=== PATIENT | female | born 1990 | race American Indian/Alaskan Native ===

== ENCOUNTER 2018-07-07 17:25 | Emergency (ER) | payer OTHER ==
[2018-07-07] MEDS ORDERED: TYLENOL PO ONE (17:54)
--- NOTE | 2018-07-07 17:54 | Emergency Department Report ---
Chief Complaint: Pain General Stated Complaint: LOWER BACK PAIN/BODY ACHE Time Seen by Provider: 07/07/18 17:51 - HPI History of Present Illness: This is a 28 y.o. female that presents to the ER with right flank pain and chills since yesterday. Denies n/v/d Reports decreased appetite. - Exam Vital Signs: Vital Signs 07/07/18 17:51 Temperature 101.1 F H Pulse Rate 97 H Respiratory 18 Rate Blood Pressure 156/104 O2 Sat by Pulse 100 Oximetry MSE screening note: Focused history and physical exam performed. Due to findings the following was ordered: Labs ACC for further evaluation. ED Disposition for MSE Condition: Stable
[2018-07-07] MEDS ORDERED: TYLENOL ONE (17:57)
[2018-07-07 18:15] LABS: Basophils % (Auto) 0.3 % (0.0-1.8); Eosinophils # (Auto) 0.1 K/mm3 (0.0-0.4); Eosinophils % (Auto) 1.2 % (0.0-4.3); Hematocrit 42.6 % (30.3-42.9); Hemoglobin 13.7 gm/dl (10.1-14.3); Lymphocytes # (Auto) 1.5 K/mm3 (1.2-5.4); Lymphocytes % (Auto) 15.5 % (13.4-35.0); Mean Corpuscular HGB Conc 32 % (30-34); Mean Corpuscular Volume 82 fl (79-97); Monocytes # (Auto) 1.2 K/mm3 (0.0-0.8); Monocytes % (Auto) 12.4 % (0.0-7.3); Platelet Count 144 K/mm3 (140-440); Red Cell Distribution Width 16.4 % (13.2-15.2)
[2018-07-07 18:37] LABS: Alanine Aminotransferase 8 units/L (7-56); Albumin 4.1 g/dL (3.9-5); BUN/Creatinine Ratio 7; Blood Urea Nitrogen 6 mg/dL (7-17); Calcium 8.8 mg/dL (8.4-10.2); Hemolysis Index 18
[2018-07-07 19:04] LABS: Bilirubin,Urine NEG (Negative); Blood,Urine SM (Negative); Color,Urine Yellow (Yellow); Mucus,Urine 2+ /HPF
--- NOTE | 2018-07-07 20:25 | Emergency Department Report ---
ED General Adult HPI - General Chief complaint: Pain General Stated complaint: LOWER BACK PAIN/BODY ACHE Time Seen by Provider: 07/07/18 17:51 Source: patient Mode of arrival: Ambulatory Limitations: No Limitations - History of Present Illness Initial comments: This is a 28 y.o. female that presents to the ER with right flank pain and chills since yesterday. Symptoms include dysuria, frequency, and urgency, no hematuria no vaginal discharge , LMP 3 weeks ago, pt denies n/v/d, Reports decreased appetite. no hx of renal stones Onset/Timin -: days(s) Location: abdomen Radiation: flank Severity scale (0 -10): 3 Quality: burning, aching Consistency: intermittent Improves with: none Worsens with: other (voiding ) Treatments Prior to Arrival: none - Related Data Previous Rx's Medication Instructions Recorded Last Taken Type Acetaminophen/Codeine [Tylenol 1 tab PO Q6H PRN #12 tab 03/01/18 Unknown Rx /Codeine # 3 tab] Amoxicillin/K Clav Tab [Augmentin 1 tab PO Q12HR #20 tab 03/01/18 Unknown Rx 875 mg] Chlorhexidine Mouthwash [Peridex] 15 ml MM BID #1 bottle 03/01/18 Unknown Rx Ibuprofen [Motrin] 600 mg PO Q8H PRN #20 tablet 03/01/18 Unknown Rx Clindamycin [Clindamycin CAP] 300 mg PO Q8H 10 Days #30 cap 03/07/18 Unknown Rx Omeprazole 40 mg PO DAILY #30 capsule. 07/07/18 Unknown Rx Sucralfate [Carafate] 1 gm PO ACHS 7 Days #28 tablet 07/07/18 Unknown Rx levoFLOXacin [Levaquin TAB] 500 mg PO QDAY #10 tablet 07/07/18 Unknown Rx traMADol [Ultram] 50 mg PO Q6HR PRN #12 tablet 07/07/18 Unknown Rx Allergies Allergy/AdvReac Type Severity Reaction Status Date / Time ceftriaxone [From Rocephin] Allergy Unknown Verified 07/07/18 17:51 ED Review of Systems ROS: Stated complaint: LOWER BACK PAIN/BODY ACHE Other details as noted in HPI Constitutional: denies: chills, fever Eyes: denies: eye pain, eye discharge, vision change ENT: denies: ear pain, throat pain Respiratory: denies: cough, shortness of breath, wheezing Cardiovascular: denies: chest pain, palpitations Endocrine: no symptoms reported Gastrointestinal: abdominal pain (right flank pain ) Genitourinary: urgency, dysuria, frequency. denies: hematuria, discharge, abnormal menses, dyspareunia Musculoskeletal: back pain Skin: denies: rash, lesions Neurological: denies: headache, weakness, paresthesias Psychiatric: denies: anxiety, depression Hematological/Lymphatic: denies: easy bleeding, easy bruising ED Past Medical Hx - Past Medical History Previous Medical History?: No Additional medical history: vaginal ablation - Surgical History Past Surgical History?: Yes Additional Surgical History: tubal ligation, cervical ablation - Social History Smoking Status: Current Every Day Smoker Substance Use Type: None - Medications Home Medications: Home Medications Medication Instructions Recorded Confirmed Last Taken Type Acetaminophen/Codeine [Tylenol 1 tab PO Q6H PRN #12 tab 03/01/18 Unknown Rx /Codeine # 3 tab] Amoxicillin/K Clav Tab [Augmentin 1 tab PO Q12HR #20 tab 03/01/18 Unknown Rx 875 mg] Chlorhexidine Mouthwash [Peridex] 15 ml MM BID #1 bottle 03/01/18 Unknown Rx Ibuprofen [Motrin] 600 mg PO Q8H PRN #20 tablet 03/01/18 Unknown Rx Clindamycin [Clindamycin CAP] 300 mg PO Q8H 10 Days #30 cap 03/07/18 Unknown Rx Omeprazole 40 mg PO DAILY #30 capsule.dr 07/07/18 Unknown Rx Sucralfate [Carafate] 1 gm PO ACHS 7 Days #28 tablet 07/07/18 Unknown Rx levoFLOXacin [Levaquin TAB] 500 mg PO QDAY #10 tablet 07/07/18 Unknown Rx traMADol [Ultram] 50 mg PO Q6HR PRN #12 tablet 07/07/18 Unknown Rx ED Physical Exam - General Limitations: No Limitations General appearance: alert, in no apparent distress - Head Head exam: Present: atraumatic, normocephalic - Eye Eye exam: Present: normal appearance, PERRL, EOMI Pupils: Present: normal accommodation - ENT ENT exam: Present: mucous membranes moist - Neck Neck exam: Present: normal inspection, full ROM - Respiratory Respiratory exam: Present: normal lung sounds bilaterally. Absent: respiratory distress - Cardiovascular Cardiovascular Exam: Present: regular rate, normal rhythm, normal heart sounds. Absent: systolic murmur, diastolic murmur, rubs, gallop - GI/Abdominal GI/Abdominal exam: Present: soft, normal bowel sounds. Absent: distended, tenderness, guarding, rebound, rigid, bruit, hernia - Rectal Rectal exam: Present: deferred - Extremities Exam Extremities exam: Present: normal inspection, full ROM, normal capillary refill. Absent: tenderness - Back Exam Back exam: Present: normal inspection, full ROM, CVA tenderness (R), rash noted. Absent: tenderness, CVA tenderness (L), muscle spasm, paraspinal tenderness, vertebral tenderness - Neurological Exam Neurological exam: Present: alert, oriented X3, CN II-XII intact, normal gait - Psychiatric Psychiatric exam: Present: normal affect, normal mood - Skin Skin exam: Present: warm, dry, intact, normal color. Absent: rash ED Course Vital Signs 07/07/18 07/07/18 07/07/18 17:51 20:53 21:23 Temperature 101.1 F H Pulse Rate 97 H Respiratory 18 16 16 Rate Blood Pressure 156/104 O2 Sat by Pulse 100 98 Oximetry ED Medical Decision Making - Lab Data Result diagrams: 07/07/18 17:59 07/07/18 17:59 Labs 07/07/18 07/07/18 07/07/18 17:59 17:59 17:59 WBC 9.9 RBC 5.20 H Hgb 13.7 Hct 42.6 MCV 82 MCH 26 L MCHC 32 RDW 16.4 H Plt Count 144 Lymph % (Auto) 15.5 Ross % (Auto) 12.4 H Eos % (Auto) 1.2 Baso % (Auto) 0.3 Lymph # 1.5 Ross # 1.2 H Eos # 0.1 Baso # 0.0 Seg Neutrophils % 70.6 H Seg Neutrophils # 7.0 Sodium 134 L Potassium 3.4 L Chloride 91.9 L Carbon Dioxide 24 Anion Gap 22 BUN 6 L Creatinine 0.9 Estimated GFR > 60 BUN/Creatinine Ratio 7 Glucose 91 Calcium 8.8 Total Bilirubin 0.60 AST 12 ALT 8 Alkaline Phosphatase 94 Total Protein 7.3 Albumin 4.1 Albumin/Globulin Ratio 1.3 Lipase 15 HCG, Qual Negative Urine Color Urine Turbidity Urine pH Ur Specific [place] Urine Protein Urine Glucose (UA) Urine Ketones Urine Blood Urine Nitrite Urine Bilirubin Urine Urobilinogen Ur Leukocyte Esterase Urine WBC (Auto) Urine RBC (Auto) U Epithel Cells (Auto) Urine Mucus 07/07/18 18:03 WBC RBC Hgb Hct MCV MCH MCHC RDW Plt Count Lymph % (Auto) Ross % (Auto) Eos % (Auto) Baso % (Auto) Lymph # Ross # Eos # Baso # Seg Neutrophils % Seg Neutrophils # Sodium Potassium Chloride Carbon Dioxide Anion Gap BUN Creatinine Estimated GFR BUN/Creatinine Ratio Glucose Calcium Total Bilirubin AST ALT Alkaline Phosphatase Total Protein Albumin Albumin/Globulin Ratio Lipase HCG, Qual Urine Color Yellow Urine Turbidity Clear Urine pH 7.0 Ur Specific [place] 1.012 Urine Protein 30 mg/dl Urine Glucose (UA) Neg Urine Ketones Neg Urine Blood Sm Urine Nitrite Neg Urine Bilirubin Neg Urine Urobilinogen 4.0 Ur Leukocyte Esterase Mod Urine WBC (Auto) 58.0 H Urine RBC (Auto) 17.0 U Epithel Cells (Auto) 4.0 Urine Mucus 2+ - Radiology Data Radiology results: report reviewed, [place] [address] Cat Scan Report Signed Patient: URDY GOODE MR#: [id number] 7 : 1990 Acct:[id number] Age/Sex: 28 / F ADM Date: 07/07/18 Loc: ED Attending Dr: Ordering Physician: RIC RIBEIRO NP Date of Service: 07/07/18 Procedure(s): CT abdomen pelvis wo con Accession Number(s): [id number] cc: RIC RIBEIRO NP PROCEDURE: CT ABDOMEN PELVIS WO CON TECHNIQUE: Axial helical imaging through the abdomen and pelvis with sagittal and coronal reformatted images obtained. HISTORY: abd pain COMPARISONS: None FINDINGS: The lung bases are without infiltrate, pneumothorax or pleural fluid collection. The liver, spleen, pancreas and adrenal glands are unremarkable. The gallbladder is mildly distended and contains a calcified gallstone. There is mild to moderate stranding of the right perinephric fat. There is no definite evidence of hydronephrosis nor hydroureter and no definite evidence of an obstructing stone. The bowel is normal caliber. The appendix is normal caliber. There appears to be a small amount of free fluid in the deep pelvis. There is no evidence of pneumoperitoneum. The abdominal aorta is normal caliber. There is no definite evidence of adenopathy on this study without contrast. The urinary bladder is mildly distended and unremarkable. The uterus and adnexa are unremarkable. The bony structures are unremarkable. IMPRESSION: 1. Mild to moderate stranding of the right perinephric fat without definite evidence of hydronephrosis and without definite evidence of an obstructing stone. This may represent sequela of a recently passed stone. Differential diagnosis in the proper clinical setting would also include pyelonephritis. If further imaging is required, CT with IV contrast may be helpful for further evaluation. 2. Gallstone within the gallbladder. 3. Small amount of free fluid in the deep pelvis. This document is electronically signed by Felicity Ferrari MD., July 07 2018 09:36:19 PM ET Transcribed By: ED Dictated By: FELICITY FERRARI MD Electronically Authenticated By: FELICITY FERRARI MD Signed Date/Time: 07/07/182137 DD/ 13 TD/TT: 07/07/182113 - Medical Decision Making CT: ? likely passed renal stone, Gallstone, plan: Levaquin,pt is pcn and cephalosporin allergic, Rx for omeprazole, carafate, and ultram, follow up with GI and urology in 2-3 days , given referral to [facility] for pcp affiliation, pt verbalized agreement and understanding of discharge plan . Critical care attestation.: If time is entered above; I have spent that time in minutes in the direct care of this critically ill patient, excluding procedure time. ED Disposition Clinical Impression: Gallstones, Pyelonephritis UTI (urinary tract infection) Qualifiers: Urinary tract infection type: acute cystitis Hematuria presence: without hematu juan Qualified Code(s): N30.00 - Acute cystitis without hematuria Disposition: - TO HOME OR SELFCARE Is pt being admited?: No Does the pt Need Aspirin: No Condition: Stable Instructions: Cholelithiasis (ED), Urinary Tract Infection in Women (ED) Prescriptions: Sucralfate [Carafate] 1 gm PO ACHS 7 Days #28 tablet levoFLOXacin [Levaquin TAB] 500 mg PO QDAY #10 tablet Omeprazole 40 mg PO DAILY #30 capsule. traMADol [Ultram] 50 mg PO Q6HR PRN #12 tablet PRN Reason: Pain Referrals: [facility] [Provider Group] - 3-5 Days NEREYDA PRIEST MD [Staff Physician] - 3-5 Days [facility] [Outside] - 2-3 Days Forms: Work/School Release Form(ED) Time of Disposition: 22:46
[2018-07-07] MEDS ORDERED: NACL 0.9% 1000 ML 1,000 ML IV ONE (20:28)
[2018-07-07] MEDS ORDERED: TORADOL IV ONE (20:28)
[2018-07-07] MEDS ORDERED: ZOFRAN IV ONE (20:28)
--- NOTE | 2018-07-07 21:38 | Cat Scan Report ---
PROCEDURE: CT ABDOMEN PELVIS WO CON TECHNIQUE: Axial helical imaging through the abdomen and pelvis with sagittal and coronal reformatte d images obtained. HISTORY: abd pain COMPARISONS: None FINDINGS: The lung bases are without infiltrate, pneumothorax or pleural fluid collection. The liver, spleen, pancreas and adrenal glands are unremarkable. The gallbladder is mildly distended and contains a calcified gallstone. There is mild to moderate stranding of the right perinephric fat. There is no definite evidence of hy dronephrosis nor hydroureter and no definite evidence of an obstructing stone. The bowel is normal caliber. The appendix is normal caliber. There appears to be a small amount of free fluid in the deep pelvis. There is no evidence of pneumope ritoneum. The abdominal aorta is normal caliber. There is no definite evidence of adenopathy on this study without contrast. The urinary bladder is mildly distended and unremarkable. The uterus and adnexa are unremarkable. The bony structures are unremarkable. IMPRESSION: 1. Mild to moderate stranding of the right perinephric fat without definite evidence of hydronephrosi s and without definite evidence of an obstructing stone. This may represent sequela of a recently pas sed stone. Differential diagnosis in the proper clinical setting would also include pyelonephritis. If further imaging is required, CT with IV contrast may be helpful for further evaluation. 2. Gallstone within the gallbladder. 3. Small amount of free fluid in the deep pelvis. This document is electronically signed by Felicity Ferrari MD., July 07 2018 09:36:19 PM ET
[2018-07-07] MEDS ORDERED: LEVAQUIN 500MG/100ML 500 MG/100 ML BAG IV ONE (22:04)
[2018-07-07] MEDS ORDERED: NORCO 5/325 PO ONE (22:50)
[2018-07-07 23:21] VITALS: BP 136/83
== END 2018-07-07 23:30 | disposition home or self-care (01) ==
LOC: ED 17:25
DX: N30.00 Acute cystitis without hematuria (principal); N12 Tubulo-interstitial nephritis, not specified as acute or chronic; K80.50 Calculus of bile duct without cholangitis or cholecystitis without obstruction; F17.200 Nicotine dependence, unspecified, uncomplicated; Z98.51 Tubal ligation status; Z79.899 Other long term (current) drug therapy; Z88.1 Allergy status to other antibiotic agents
CPT/HCPCS: 36415; 74176; 80053; 81001; 83690; 84703; 85025; 96365; 96375; 99284; J1885; J1956; J2405; J7030

== ENCOUNTER 2019-01-31 15:50 | Emergency (ER) | payer SELFPAY ==
--- NOTE | 2019-01-31 19:27 | Emergency Department Report ---
ED Neck Pain/Injury HPI - General Chief Complaint: Neck Pain/Injury Stated Complaint: NECK/BACK PAIN Source: patient Mode of arrival: Ambulatory Limitations: No Limitations - History of Present Illness Initial Comments: There is a pleasant 29-year-old female who presents them are still part of the chief complaint of bilateral neck pain over the past 3 days. She states she has been sleeping on her mom's couch for the past year has had on and off pain in her neck. She states over the past 3 days she's had gradual pain that started the base of her neck and radiates up to the sides of her head the skull base. She states when this pain started was gradual in onset however seems to be getting worse. Pain is aggravated by movement. Pain is 8 out of 10 in severity described as dull and achy with no alleviating factors. She denies any known past medical history, current medication use but has allergies to Rocephin. Onset/Timin -: days(s) Severity: similar to prior neck anai Severity scale (0 -10): 8 - Related Data Previous Rx's Medication Instructions Recorded Last Taken Type Clindamycin [Clindamycin CAP] 300 mg PO Q8H 10 Days #30 cap 03/07/18 Unknown Rx Omeprazole 40 mg PO DAILY #30 capsule. 07/07/18 Unknown Rx Sucralfate [Carafate] 1 gm PO ACHS 7 Days #28 tablet 07/07/18 Unknown Rx levoFLOXacin [Levaquin TAB] 500 mg PO QDAY #10 tablet 07/07/18 Unknown Rx Naproxen 500 mg PO BID 7 Days #14 tablet 01/31/19 Unknown Rx methOCARBAMOL [Robaxin TAB] 500 mg PO Q6H #20 tablet 01/31/19 Unknown Rx Allergies Allergy/AdvReac Type Severity Reaction Status Date / Time ceftriaxone [From Rocephin] Allergy Unknown Verified 07/07/18 17:51 ED Review of Systems ROS: Stated complaint: NECK/BACK PAIN Other details as noted in HPI Comment: All other systems reviewed and negative Constitutional: denies: chills, fever Eyes: denies: eye pain, eye discharge, vision change ENT: denies: ear pain, throat pain Respiratory: denies: cough, shortness of breath, wheezing Cardiovascular: denies: chest pain, palpitations Endocrine: no symptoms reported Gastrointestinal: denies: abdominal pain, nausea, diarrhea Genitourinary: denies: urgency, dysuria, discharge Musculoskeletal: as per HPI, myalgia. denies: back pain, joint swelling, arthralgia Skin: denies: rash, lesions Neurological: denies: headache, weakness, paresthesias Psychiatric: denies: anxiety, depression Hematological/Lymphatic: denies: easy bleeding, easy bruising ED Past Medical Hx - Past Medical History Previous Medical History?: Yes Hx Hypertension: Yes Additional medical history: vaginal ablation - Surgical History Past Surgical History?: Yes Additional Surgical History: tubal ligation, cervical ablation - Social History Smoking Status: Current Every Day Smoker Substance Use Type: None - Medications Home Medications: Home Medications Medication Instructions Recorded Confirmed Last Taken Type Clindamycin [Clindamycin CAP] 300 mg PO Q8H 10 Days #30 cap 03/07/18 Unknown Rx Omeprazole 40 mg PO DAILY #30 capsule.dr 07/07/18 Unknown Rx Sucralfate [Carafate] 1 gm PO ACHS 7 Days #28 tablet 07/07/18 Unknown Rx levoFLOXacin [Levaquin TAB] 500 mg PO QDAY #10 tablet 07/07/18 Unknown Rx Naproxen 500 mg PO BID 7 Days #14 tablet 01/31/19 Unknown Rx methOCARBAMOL [Robaxin TAB] 500 mg PO Q6H #20 tablet 01/31/19 Unknown Rx ED Physical Exam - General Limitations: No Limitations General appearance: alert, in no apparent distress - Head Head exam: Present: atraumatic, normocephalic - Eye Eye exam: Present: normal appearance - ENT ENT exam: Present: normal exam, mucous membranes moist - Neck Neck exam: Present: normal inspection, tenderness (mild paraspinal tenderness. No midline tenderness of cervical spine. Full active range of motion without pain. No carotid bruits.), full ROM, other (negative Spurling sign). Absent: meningismus - Respiratory Respiratory exam: Present: normal lung sounds bilaterally. Absent: respiratory distress - Cardiovascular Cardiovascular Exam: Present: regular rate, normal rhythm. Absent: systolic murmur, diastolic murmur, rubs, gallop - GI/Abdominal GI/Abdominal exam: Present: soft, normal bowel sounds - Extremities Exam Extremities exam: Present: normal inspection - Back Exam Back exam: Present: normal inspection - Neurological Exam Neurological exam: Present: alert, oriented X3, CN II-XII intact, normal gait, other (normal strength and sensation of the bilateral upper and lower extremities, normal gait, no focal neurologic deficits.) - Psychiatric Psychiatric exam: Present: normal affect, normal mood - Skin Skin exam: Present: warm, dry, intact, normal color. Absent: rash ED Course Vital Signs 01/31/19 01/31/19 16:06 20:06 Temperature 98.3 F 98.3 F Pulse Rate 62 54 L Respiratory 18 Rate Blood Pressure 142/99 Blood Pressure 143/97 [Left] O2 Sat by Pulse 100 Oximetry ED Medical Decision Making - Medical Decision Making This pleasant 29-year-old female presents the emergency department with chief complaint of neck pain for the past 3 days however states it has been ongoing for the past year on and off. She denies any injuries. She has no fever or meningismus on exam and a negative Kernig and Brudzinski sign making meningitis unlikely. Her neurologic exam is unremarkable and her pain is reproducible suspect this is very muscular skeletal. She has no symptoms of a vascular etiology of her pain such as dissection with no bruits and no risk factors for this. Her NIH score is 0 and there are no focal neurologic deficits on her exam. Patient's headache was gradual making subarachnoid hemorrhage unlikely. She had no pain to the temporal areas and no vision changes making temporal arteritis unlikely. I educated the patient to return the first part of any change or worsening symptoms but we'll treat her pain from a skilled skeletal pain with naproxen and Robaxin and recommended to the area. I will give orthopedic follow-up and recommended outpatient follow-up with her primary care doctor. Return to the emergency department with a changing worsening symptoms. All questions were answered. - Differential Diagnosis strain, muscle spasm, fracture Critical care attestation.: If time is entered above; I have spent that time in minutes in the direct care of this critically ill patient, excluding procedure time. ED Disposition Clinical Impression: Strain of neck muscle Qualifiers: Encounter type: initial encounter Qualified Code(s): S16.1XXA - Strain of muscle, fascia and tendon at neck level, initial encounter Disposition: TO HOME OR SELFCARE Is pt being admited?: No Does the pt Need Aspirin: No Condition: Stable Instructions: Muscle Strain (ED) Prescriptions: Naproxen 500 mg PO BID 7 Days #14 tablet methOCARBAMOL [Robaxin TAB] 500 mg PO Q6H #20 tablet Forms: Work/School Release Form(ED) Time of Disposition: 20:31
[2019-01-31 20:08] VITALS: BP 143/97
== END 2019-01-31 20:40 | disposition home or self-care (01) ==
LOC: ED 15:50
DX: S16.1XXA Strain of muscle, fascia and tendon at neck level, initial encounter (principal); I10 Essential (primary) hypertension; F17.200 Nicotine dependence, unspecified, uncomplicated; Z98.51 Tubal ligation status; Z79.899 Other long term (current) drug therapy; X58.XXXA Exposure to other specified factors, initial encounter; Y93.89 Activity, other specified; Y92.89 Other specified places as the place of occurrence of the external cause; Y99.8 Other external cause status

== ENCOUNTER 2019-06-04 00:05 | Emergency (ER) | payer SELFPAY ==
[2019-06-04] MEDS ORDERED: ASPIRIN 325 MG TAB PO ONE (00:36)
[2019-06-04] MEDS ORDERED: cloNIDine 0.1 MG TAB PO ONE (00:39)
[2019-06-04 01:00] LABS: Hemoglobin 13.6 gm/dl (10.1-14.3); Mean Corpuscular HGB Conc 34 % (30-34); Mean Corpuscular Volume 81 fl (79-97); Platelet Count 112 K/mm3 (140-440); Red Blood Count 4.96 M/mm3 (3.65-5.03); Red Cell Distribution Width 15.7 % (13.2-15.2)
[2019-06-04 01:22] LABS: BUN/Creatinine Ratio 11; Blood Urea Nitrogen 8 mg/dL (7-17); Calcium 9.1 mg/dL (8.4-10.2); Hemolysis Index 6
--- NOTE | 2019-06-04 03:27 | XRay Report ---
CHEST 1 VIEW INDICATION / CLINICAL INFORMATION: Chest Pain. COMPARISON: None available. FINDINGS: SUPPORT DEVICES: None. HEART / MEDIASTINUM: No significant abnormality. LUNGS / PLEURA: No significant pulmonary or pleural abnormality. No pneumothorax. ADDITIONAL FINDINGS: No significant additional findings. IMPRESSION: No acute pulmonary or pleural abnormality Signer Name: Rommel Alonzo MD FACR Signed: 06/04/2019 3:23 AM Workstation Name: [id number]
[2019-06-04 04:16] VITALS: BP 137/100
[2019-06-04 04:20] LABS: Total Cells Counted 100
[2019-06-04 04:22] LABS: Anisocytosis RARE; Ovalocytes Rare; Platelet Estimate Consistent w Auto
--- NOTE | 2019-06-04 04:24 | Emergency Department Report ---
ED General Adult HPI - General Chief complaint: Arrhythmia/Palpitations Stated complaint: BODYACHES/CHILLS Time Seen by Provider: 06/04/19 03:07 Source: patient Mode of arrival: Ambulatory Limitations: No Limitations - History of Present Illness Initial comments: Patient is a 29-year-old female presents emergency room with complaints of an episode of diaphoresis, chills, felt like her heart was skipping a beat that occurred today. She states that [place] She denies ever having this in the past. She denies any diarrhea, fever, shortness of breath, chest pain, leg swelling, recent travel, recent serra rgery, hormone use, history of cancer. She is a current every day smoker. She is a nondrinker. Denies drug use. She states that she does drink a lot of caffeine and drinks approximately 3 sodas a day. She denies any past medical history. She has an allergy to Rocephin. Severity scale (0 -10): 0 - Related Data Previous Rx's Medication Instructions Recorded Last Taken Type Clindamycin [Clindamycin CAP] 300 mg PO Q8H 10 Days #30 cap 03/07/18 Unknown Rx Omeprazole 40 mg PO DAILY #30 capsule. 07/07/18 Unknown Rx Sucralfate [Carafate] 1 gm PO ACHS 7 Days #28 tablet 07/07/18 Unknown Rx levoFLOXacin [Levaquin TAB] 500 mg PO QDAY #10 tablet 07/07/18 Unknown Rx Naproxen 500 mg PO BID 7 Days #14 tablet 01/31/19 Unknown Rx methOCARBAMOL [Robaxin TAB] 500 mg PO Q6H #20 tablet 01/31/19 Unknown Rx Clindamycin [Clindamycin CAP] 450 mg PO TID 7 Days #63 capsule 06/03/19 Unknown Rx Ibuprofen [Motrin 600 MG tab] 600 mg PO Q8H PRN #20 tablet 06/03/19 Unknown Rx Penicillin Vk [Veetids TAB] 500 mg PO QID 7 Days #56 tablet 06/03/19 Unknown Rx traMADoL [Ultram 50 MG tab] 50 mg PO Q6HR PRN #7 tablet 06/03/19 Unknown Rx amLODIPine 10 mg PO DAILY #30 tablet 06/04/19 Unknown Rx Allergies Allergy/AdvReac Type Severity Reaction Status Date / Time ceftriaxone [From Rocephin] Allergy Unknown Verified 07/07/18 17:51 ED Review of Systems ROS: Stated complaint: BODYACHES/CHILLS Other details as noted in HPI Comment: All other systems reviewed and negative ED Past Medical Hx - Past Medical History Previous Medical History?: Yes Hx Hypertension: Yes (Not taking medication) Additional medical history: vaginal ablation - Surgical History Past Surgical History?: Yes Additional Surgical History: tubal ligation, Endometrial Ablation - Social History Smoking Status: Current Some Day Smoker - Medications Home Medications: Home Medications Medication Instructions Recorded Confirmed Last Taken Type Clindamycin [Clindamycin CAP] 300 mg PO Q8H 10 Days #30 cap 03/07/18 Unknown Rx Omeprazole 40 mg PO DAILY #30 capsule. 07/07/18 Unknown Rx Sucralfate [Carafate] 1 gm PO ACHS 7 Days #28 tablet 07/07/18 Unknown Rx levoFLOXacin [Levaquin TAB] 500 mg PO QDAY #10 tablet 07/07/18 Unknown Rx Naproxen 500 mg PO BID 7 Days #14 tablet 01/31/19 Unknown Rx methOCARBAMOL [Robaxin TAB] 500 mg PO Q6H #20 tablet 01/31/19 Unknown Rx Clindamycin [Clindamycin CAP] 450 mg PO TID 7 Days #63 capsule 06/03/19 Unknown Rx Ibuprofen [Motrin 600 MG tab] 600 mg PO Q8H PRN #20 tablet 06/03/19 Unknown Rx Penicillin Vk [Veetids TAB] 500 mg PO QID 7 Days #56 tablet 06/03/19 Unknown Rx traMADoL [Ultram 50 MG tab] 50 mg PO Q6HR PRN #7 tablet 06/03/19 Unknown Rx amLODIPine 10 mg PO DAILY #30 tablet 06/04/19 Unknown Rx ED Physical Exam - General Limitations: No Limitations General appearance: alert, in no apparent distress - Head Head exam: Present: atraumatic, normocephalic - Eye Eye exam: Present: normal appearance - ENT ENT exam: Present: mucous membranes moist - Respiratory Respiratory exam: Present: normal lung sounds bilaterally. Absent: respiratory distress, wheezes, rales, rhonchi, stridor, chest wall tenderness, accessory muscle use, decreased breath sounds, prolonged expiratory - Cardiovascular Cardiovascular Exam: Present: regular rate, normal rhythm, normal heart sounds. Absent: systolic murmur, diastolic murmur, rubs, gallop - Neurological Exam Neurological exam: Present: alert, oriented X3 - Psychiatric Psychiatric exam: Present: normal affect, normal mood - Skin Skin exam: Present: warm, dry, intact ED Course Vital Signs 06/04/19 06/04/19 06/04/19 00:28 00:44 04:16 Temperature 98.2 F 99 F Pulse Rate 91 H 91 H 77 Respiratory 18 18 Rate Blood Pressure 159/111 159/11 Blood Pressure 137/100 [Left] O2 Sat by Pulse 100 100 Oximetry ED Medical Decision Making - Lab Data Result diagrams: 06/04/19 00:44 06/04/19 00:44 Lab Results 06/04/19 06/04/19 06/04/19 Range/Units 00:44 00:44 00:44 WBC 2.7 L (4.5-11.0) K/mm3 RBC 4.96 (3.65-5.03) M/mm3 Hgb 13.6 (10.1-14.3) gm/dl Hct 40.0 (30.3-42.9) % MCV 81 (79-97) fl MCH 27 L (28-32) pg MCHC 34 (30-34) % RDW 15.7 H (13.2-15.2) % Plt Count 112 L (140-440) K/mm3 [place] % (Auto) [place] [employer] Operator Add Manual Diff Complete Total Counted 100 Seg Neuts % (Manual) 60.0 (40.0-70.0) % Band Neutrophils % 0 % Lymphocytes % (Manual) 20.0 (13.4-35.0) % Reactive Lymphs % (Man) 0 % Monocytes % (Manual) 18.0 H (0.0-7.3) % Eosinophils % (Manual) 1.0 (0.0-4.3) % Basophils % (Manual) 1.0 (0.0-1.8) % Metamyelocytes % 0 % Myelocytes % 0 % Promyelocytes % 0 % Blast Cells % 0 % Nucleated RBC % Not Reportable Seg Neutrophils # Man 1.6 L (1.8-7.7) K/mm3 Band Neutrophils # 0.0 K/mm3 Lymphocytes # (Manual) 0.5 L (1.2-5.4) K/mm3 Abs React Lymphs (Man) 0.0 K/mm3 Monocytes # (Manual) 0.5 (0.0-0.8) K/mm3 Eosinophils # (Manual) 0.0 (0.0-0.4) K/mm3 Basophils # (Manual) 0.0 (0.0-0.1) K/mm3 Metamyelocytes # 0.0 K/mm3 Myelocytes # 0.0 K/mm3 Promyelocytes # 0.0 K/mm3 Blast Cells # 0.0 K/mm3 WBC Morphology Not Reportable Hypersegmented Neuts Not Reportable Hyposegmented Neuts Not Reportable Hypogranular Neuts Not Reportable Smudge Cells Not Reportable Toxic Granulation Not Reportable Toxic Vacuolation Not Reportable Dohle Bodies Not Reportable Pelger-Huet Anomaly Not Reportable Liz Rods Not Reportable Platelet Estimate Consistent w auto Clumped Platelets Not Reportable Plt Clumps, EDTA Not Reportable Large Platelets Not Reportable Giant Platelets Not Reportable Platelet Satelliting Not Reportable Plt Morphology Comment Not Reportable RBC Morphology Not Reportable Dimorphic RBCs Not Reportable Polychromasia Not Reportable Hypochromasia Not Reportable Poikilocytosis Not Reportable Anisocytosis Rare Microcytosis Not Reportable Macrocytosis Not Reportable Spherocytes Not Reportable Pappenheimer Bodies Not Reportable Sickle Cells Not Reportable Target Cells Not Reportable Tear Drop Cells Not Reportable Ovalocytes Rare Helmet Cells Not Reportable Mckeon-Turney Bodies Not Reportable [place] Rings Not Reportable Kersey Cells Not Reportable Bite Cells Not Reportable Crenated Cell Not Reportable Elliptocytes Not Reportable Acanthocytes (Spur) Not Reportable Rouleaux Not Reportable Hemoglobin C Crystals Not Reportable Schistocytes Not Reportable Malaria parasites Not Reportable Fran Bodies Not Reportable Hem Pathologist Commnt No Sodium 138 (137-145) mmol/L Potassium 3.6 (3.6-5.0) mmol/L Chloride 99.2 (98-107) mmol/L Carbon Dioxide 28 (22-30) mmol/L Anion Gap 14 mmol/L BUN 8 (7-17) mg/dL Creatinine 0.7 (0.7-1.2) mg/dL Estimated GFR > 60 ml/min BUN/Creatinine Ratio 11 % Glucose 100 (65-100) mg/dL Calcium 9.1 (8.4-10.2) mg/dL Troponin T < 0.010 (0.00-0.029) ng/mL HCG, Qual Negative (Negative) 06/04/19 Range/Units 03:44 WBC (4.5-11.0) K/mm3 RBC (3.65-5.03) M/mm3 Hgb (10.1-14.3) gm/dl Hct (30.3-42.9) % MCV (79-97) fl MCH (28-32) pg MCHC (30-34) % RDW (13.2-15.2) % Plt Count (140-440) K/mm3 [place] % (Auto) Add Manual Diff Total Counted Seg Neuts % (Manual) (40.0-70.0) % Band Neutrophils % % Lymphocytes % (Manual) (13.4-35.0) % Reactive Lymphs % (Man) % Monocytes % (Manual) (0.0-7.3) % Eosinophils % (Manual) (0.0-4.3) % Basophils % (Manual) (0.0-1.8) % Metamyelocytes % % Myelocytes % % Promyelocytes % % Blast Cells % % Nucleated RBC % Seg Neutrophils # Man (1.8-7.7) K/mm3 Band Neutrophils # K/mm3 Lymphocytes # (Manual) (1.2-5.4) K/mm3 Abs React Lymphs (Man) K/mm3 Monocytes # (Manual) (0.0-0.8) K/mm3 Eosinophils # (Manual) (0.0-0.4) K/mm3 Basophils # (Manual) (0.0-0.1) K/mm3 Metamyelocytes # K/mm3 Myelocytes # K/mm3 Promyelocytes # K/mm3 Blast Cells # K/mm3 WBC Morphology Hypersegmented Neuts Hyposegmented Neuts Hypogranular Neuts Smudge Cells Toxic Granulation Toxic Vacuolation Dohle Bodies Pelger-Huet Anomaly Liz Rods Platelet Estimate Clumped Platelets Plt Clumps, EDTA Large Platelets Giant Platelets Platelet Satelliting Plt Morphology Comment RBC Morphology Dimorphic RBCs Polychromasia Hypochromasia Poikilocytosis Anisocytosis Microcytosis Macrocytosis Spherocytes Pappenheimer Bodies Sickle Cells Target Cells Tear Drop Cells Ovalocytes Helmet Cells Mckeon-Turney Bodies [place] Rings Kersey Cells Bite Cells Crenated Cell Elliptocytes Acanthocytes (Spur) Rouleaux Hemoglobin C Crystals Schistocytes Malaria parasites Fran Bodies Hem Pathologist Commnt Sodium (137-145) mmol/L Potassium (3.6-5.0) mmol/L Chloride (98-107) mmol/L Carbon Dioxide (22-30) mmol/L Anion Gap mmol/L BUN (7-17) mg/dL Creatinine (0.7-1.2) mg/dL Estimated GFR ml/min BUN/Creatinine Ratio % Glucose (65-100) mg/dL Calcium (8.4-10.2) mg/dL Troponin T < 0.010 (0.00-0.029) ng/mL HCG, Qual (Negative) - EKG Data EKG shows normal: sinus rhythm, axis, intervals, QRS complexes, ST-T waves Rate: normal - Radiology Data Radiology results: report reviewed Chest x-ray No acute abnormality - Medical Decision Making Patient is a 29-year-old female presents emergency room with complaints of an episode of diaphoresis, chills, felt like her heart was skipping a beat that occurred today. She states that [place] She denies ever having this in the past. She denies any diarrhea, fever, shortness of breath, chest pain, leg swelling, recent travel, recent surgery, hormone use, history of cancer. She is a current every day smoker. She is a nondrinker. Denies drug use. She states that she does drink a lot of caffeine and drinks approximately 3 sodas a day. She denies any past medical history. She has an allergy to Rocephin. Vitals with elevated blood pressure, otherwise stable. No abnormality on physical examination as documented in chart. EKG within normal limits. Chest x-ray with no acute process. Troponin is negative x2. Labs with nonspecific decrease in white blood cell count, platelets, lymphocytes could be due to medications versus viral infection. PERC criteria negative for PE. JOSTIN score is 0 and heart score is 1, very low risk for cardiac event. it appears during patient's last several visits her blood pressure has always been elevated, she is not taking any blood pressure medi cation. Patient will be placed on amlodipine 10 mg daily. advised pt to Please take medication as prescribed. Avoid caffeine use or any other stimulants. Please consider stopping smoking. Follow-up with a director private. Follow-up with your primary care doctor. Eat a low-sodium diet, incorporate daily exercise. Keep a blood pressure log and take your blood pressure 3 times a day and take this to the primary care physician. Please have routine blood work repeated with a primary care doctor. Return to the emergency room for any new or worsening symptoms. Critical care attestation.: If time is entered above; I have spent that time in minutes in the direct care o f this critically ill patient, excluding procedure time. ED Disposition Clinical Impression: Palpitations, Thrombocytopenia Hypertension Qualifiers: Hypertension type: unspecified Qualified Code(s): I10 - Essential (primary) hypertension Leukopenia Qualifiers: Leukopenia type: neutropenia Neutropenia type: unspecified Qualified Code(s): D70.9 - Neutropenia, unspecified Disposition: TO HOME OR SELFCARE Is pt being admited?: No Does the pt Need Aspirin: No Condition: Stable Instructions: Palpitations (ED), Hypertension (ED) Additional Instructions: Please take medication as prescribed. Avoid caffeine use or any other stimulants. Please consider stopping smoking. Follow-up with a director private. Follow-up with your primary care doctor. Eat a low-sodium diet, incorporate daily exercise. Keep a blood pressure log and take your blood pressure 3 times a day and take this to the primary care physician. Please have routine blood work repeated with a primary care doctor. Return to the emergency room for any new or worsening symptoms. Prescriptions: amLODIPine 10 mg PO DAILY #30 tablet Referrals: [facility] [Provider Group] - 3-5 Days [facility] [Provider Group] - 3-5 Days JIM SHAY MD [Staff Physician] - 3-[address] [facility] [Outside] - 3-5 Days Time of Disposition: 04:48 Print Language: ICELANDIC
== END 2019-06-04 04:58 | disposition home or self-care (01) ==
LOC: ED 00:05
DX: R00.2 Palpitations (principal); D69.6 Thrombocytopenia, unspecified; D72.818 Other decreased white blood cell count; I10 Essential (primary) hypertension; F17.200 Nicotine dependence, unspecified, uncomplicated; Z98.51 Tubal ligation status; Z79.1 Long term (current) use of non-steroidal anti-inflammatories (NSAID); Z79.2 Long term (current) use of antibiotics; Z79.899 Other long term (current) drug therapy; Z88.8 Allergy status to other drugs, medicaments and biological substances
CPT/HCPCS: 36415; 71045; 80048; 84484; 84703; 85007; 85025; 93005; 93010

== ENCOUNTER 2019-06-05 18:38 | Inpatient (IN) | payer OTHER ==
--- NOTE | 2019-06-05 19:21 | Event Note ---
ED Screening Note Date of service: 06/05/19 Time: 19:17 ED Screening Note: This initial assessment/diagnostic orders/clinical plan/treatment(s) is/are subject to change based on patients health status, clinical progression and re- assessment by fellow clinical providers in the ED. Further treatment and workup at subsequent clinical providers discretion. Patient/guardian urged not to elope from the ED as their condition may be serious if not clinically assessed and managed. Initial orders include: 29yo F states that she has fever, chest congestion and malaise x 2 days.
[2019-06-05 19:56] LABS: Hematocrit 45.5 % (30.3-42.9); Hemoglobin 14.4 gm/dl (10.1-14.3); Mean Corpuscular HGB Conc 32 % (30-34); Mean Corpuscular Volume 83 fl (79-97)
[2019-06-05 19:59] LABS: Platelet Count 88 K/mm3 (140-440)
[2019-06-05 20:10] LABS: BUN/Creatinine Ratio 13; Blood Urea Nitrogen 9 mg/dL (7-17); Calcium 8.7 mg/dL (8.4-10.2); Hemolysis Index 25
[2019-06-05] MEDS ORDERED: diphenhydrAMINE 50 MG/ML VIAL IV ONE (20:47)
[2019-06-05] MEDS ORDERED: ACETAMINOPHEN 325 MG TAB PO ONE (20:47)
[2019-06-05] MEDS ORDERED: METOCLOPRAMIDE 10 MG/2 ML INJ IV PRN (20:47)
[2019-06-05] MEDS ORDERED: SODIUM CHLORIDE 0.9% 1000 ML 1,000 ML IV ONE (20:47)
[2019-06-05 21:11] LABS: Alanine Aminotransferase 13 units/L (7-56); Albumin 3.8 g/dL (3.9-5); Bilirubin,Direct < 0.2 mg/dL (0-0.2)
[2019-06-05 21:25] LABS: Hematocrit 44.6 % (30.3-42.9); Hemoglobin 14.2 gm/dl (10.1-14.3); Mean Corpuscular HGB Conc 32 % (30-34); Mean Corpuscular Volume 82 fl (79-97); Platelet Count 97 K/mm3 (140-440); Red Blood Count 5.41 M/mm3 (3.65-5.03); Red Cell Distribution Width 16.2 % (13.2-15.2)
--- NOTE | 2019-06-05 21:36 | Emergency Department Report ---
<TAJ HARTLEY III - Last Filed: 06/06/19 00:40> - General Chief Complaint: Upper Respiratory Infection Stated Complaint: CHILLS,BODYACHE, HEADACHE Time Seen by Provider: 06/05/19 19:17 - Related Data Previous Rx's Medication Instructions Recorded Last Taken Type Clindamycin [Clindamycin CAP] 300 mg PO Q8H 10 Days #30 cap 03/07/18 Unknown Rx Omeprazole 40 mg PO DAILY #30 capsule. 07/07/18 Unknown Rx Sucralfate [Carafate] 1 gm PO ACHS 7 Days #28 tablet 07/07/18 Unknown Rx levoFLOXacin [Levaquin TAB] 500 mg PO QDAY #10 tablet 07/07/18 Unknown Rx Naproxen 500 mg PO BID 7 Days #14 tablet 01/31/19 Unknown Rx methOCARBAMOL [Robaxin TAB] 500 mg PO Q6H #20 tablet 01/31/19 Unknown Rx Clindamycin [Clindamycin CAP] 450 mg PO TID 7 Days #63 capsule 06/03/19 Unknown Rx Ibuprofen [Motrin 600 MG tab] 600 mg PO Q8H PRN #20 tablet 06/03/19 Unknown Rx Penicillin Vk [Veetids TAB] 500 mg PO QID 7 Days #56 tablet 06/03/19 Unknown Rx traMADoL [Ultram 50 MG tab] 50 mg PO Q6HR PRN #7 tablet 06/03/19 Unknown Rx amLODIPine 10 mg PO DAILY #30 tablet 06/04/19 Unknown Rx Allergies Allergy/AdvReac Type Severity Reaction Status Date / Time ceftriaxone [From Rocephin] Allergy Unknown Verified 07/07/18 17:51 ED Past Medical Hx - Medications Home Medications: Home Medications Medication Instructions Recorded Confirmed Last Taken Type Clindamycin [Clindamycin CAP] 300 mg PO Q8H 10 Days #30 cap 03/07/18 Unknown Rx Omeprazole 40 mg PO DAILY #30 capsule. 07/07/18 Unknown Rx Sucralfate [Carafate] 1 gm PO ACHS 7 Days #28 tablet 07/07/18 Unknown Rx levoFLOXacin [Levaquin TAB] 500 mg PO QDAY #10 tablet 07/07/18 Unknown Rx Naproxen 500 mg PO BID 7 Days #14 tablet 01/31/19 Unknown Rx methOCARBAMOL [Robaxin TAB] 500 mg PO Q6H #20 tablet 01/31/19 Unknown Rx Clindamycin [Clindamycin CAP] 450 mg PO TID 7 Days #63 capsule 06/03/19 Unknown Rx Ibuprofen [Motrin 600 MG tab] 600 mg PO Q8H PRN #20 tablet 06/03/19 Unknown Rx Penicillin Vk [Veetids TAB] 500 mg PO QID 7 Days #56 tablet 06/03/19 Unknown Rx traMADoL [Ultram 50 MG tab] 50 mg PO Q6HR PRN #7 tablet 06/03/19 Unknown Rx amLODIPine 10 mg PO DAILY #30 tablet 06/04/19 Unknown Rx ED Course - Reevaluation(s) Reevaluation #2: I examined patient. I agree with midlevel's assessment and plan. I discussed all results with patient. I discussed plan of care with patient. Patient agrees with plan of care and admission. Patient to be admitted to the hospitalist service. 06/06/19 00:41 ED Medical Decision Making - Lab Data Result diagrams: 06/05/19 Unknown 06/05/19 19:27 ED Disposition Clinical Impression: Thrombocytopenia, Cough, Chills Fever Qualifiers: Fever type: unspecified Qualified Code(s): R50.9 - Fever, unspecified Leukopenia Qualifiers: Leukopenia type: neutropenia Neutropenia type: unspecified Qualified Code(s): D70.9 - Neutropenia, unspecified Neutropenia Qualifiers: Neutropenia type: unspecified Qualified Code(s): D70.9 - Neutropenia, unspecified Headache Qualifiers: Headache type: unspecified Headache chronicity pattern: acute headache Intractability: not intractable Qualified Code(s): R51 - Headache Disposition: -09 OP ADMIT IP TO THIS HOSP Is pt being admited?: Yes Does the pt Need Aspirin: No Condition: Critical <COLEMAN MANTILLA - Last Filed: 06/06/19 03:01> - General Source: patient Mode of arrival: Ambulatory Limitations: No Limitations - History of Present Illness Initial Comments: Patient is a 29-year-old female presents emergency room with complaints of URI symptoms that began yesterday. she states the fever began today. She has associated cough, headache, chills, generalized body ache, fever, nausea. She denies any shortness of breath, chest pain, vomiting, diarrhea, urinary symptoms, abdominal pain. She has a past medical history of hypertension. She has an allergy to Rocephin. She denies any sick contacts or recent travel or r ecent surgeries. Patient was evaluated in the emergency department yesterday manager safe with similar symptoms but did not have a fever at that time and had a chest x-ray performed with no acute process, labs did show some decrease in the white blood cell count and platelet at that time. ED Review of Systems ROS: Stated complaint: CHILLS,BODYACHE, HEADACHE Other details as noted in HPI Comment: All other systems reviewed and negative ED Past Medical Hx - Past Medical History Hx Hypertension: Yes (Not taking medication) Additional medical history: vaginal ablation - Surgical History Additional Surgical History: tubal ligation, Endometrial Ablation - Social History Smoking Status: Current Some Day Smoker ED Physical Exam - General Limitations: No Limitations General appearance: alert, in no apparent distress - Head Head exam: Present: atraumatic, normocephalic - Eye Eye exam: Present: normal appearance - ENT ENT exam: Present: normal orophraynx, mucous membranes moist, TM's normal bilaterally, normal external ear exam - Respiratory Respiratory exam: Present: normal lung sounds bilaterally. Absent: respiratory distress, wheezes, rales, rhonchi, stridor, chest wall tenderness, accessory muscle use, decreased breath sounds, prolonged expiratory - Cardiovascular Cardiovascular Exam: Present: regular rate, normal rhythm, normal heart sounds. Absent: systolic murmur, diastolic murmur, rubs, gallop - Neurological Exam Neurological exam: Present: alert, oriented X3, CN II-XII intact, normal gait. Absent: motor sensory deficit - Psychiatric Psychiatric exam: Present: normal affect, normal mood - Skin Skin exam: Present: warm, dry, intact ED Course Vital Signs 06/05/19 06/05/19 18:56 19:19 Temperature 100.3 F H 100.5 F H Pulse Rate 89 98 H Respiratory 18 18 Rate Blood Pressure 152/101 Blood Pressure 177/127 [Left] O2 Sat by Pulse 100 99 Oximetry - Reevaluation(s) Reevaluation #1: 06/05/19 23:[address] Hartley, ER attending regarding patient history and results recommended admission to the hospitalist service - Consultations Consultation #1: 06/05/19 23:[address] Maldonado, hospitalist regarding patient history and results, advised to place on droplet precautions and to submit COVID 19 form to the CDC, will accept and resume care of patient, will admit patient to the hospital ED Medical Decision Making - Lab Data Result diagrams: 06/05/19 Unknown 06/05/19 19:27 Lab Results 06/05/19 06/05/19 06/05/19 Range/Units 19:27 19:27 19:27 WBC 2.3 L (4.5-11.0) K/mm3 RBC 5.50 H (3.65-5.03) M/mm3 Hgb 14.4 H (10.1-14.3) gm/dl Hct 45.5 H (30.3-42.9) % MCV 83 (79-97) fl MCH 26 L (28-32) pg MCHC 32 (30-34) % RDW 16.0 H (13.2-15.2) % Plt Count 88 L (140-440) K/mm3 Sodium 133 L (137-145) mmol/L Potassium 3.7 (3.6-5.0) mmol/L Chloride 96.5 L (98-107) mmol/L Carbon Dioxide 20 L D (22-30) mmol/L Anion Gap 20 mmol/L BUN 9 (7-17) mg/dL Creatinine 0.7 (0.7-1.2) mg/dL Estimated GFR > 60 ml/min BUN/Creatinine Ratio 13 % Glucose 84 (65-100) mg/dL Calcium 8.7 (8.4-10.2) mg/dL Total Bilirubin 0.20 (0.1-1.2) mg/dL Direct Bilirubin < 0.2 (0-0.2) mg/dL Indirect Bilirubin 0.0 mg/dL AST 26 (5-40) units/L ALT 13 (7-56) units/L Alkaline Phosphatase 97 (35-129) units/L Total Protein 7.1 (6.3-8.2) g/dL Albumin 3.8 L (3.9-5) g/dL Albumin/Globulin Ratio 1.2 % HCG, Qual (Negative) 06/05/19 Range/Units 20:49 WBC (4.5-11.0) K/mm3 RBC (3.65-5.03) M/mm3 Hgb (10.1-14.3) gm/dl Hct (30.3-42.9) % MCV (79-97) fl MCH (28-32) pg MCHC (30-34) % RDW (13.2-15.2) % Plt Count (140-440) K/mm3 Sodium (137-145) mmol/L Potassium (3.6-5.0) mmol/L Chloride (98-107) mmol/L Carbon Dioxide (22-30) mmol/L Anion Gap mmol/L BUN (7-17) mg/dL Creatinine (0.7-1.2) mg/dL Estimated GFR ml/min BUN/Creatinine Ratio % Glucose (65-100) mg/dL Calcium (8.4-10.2) mg/dL Total Bilirubin (0.1-1.2) mg/dL Direct Bilirubin (0-0.2) mg/dL Indirect Bilirubin mg/dL AST (5-40) units/L ALT (7-56) units/L Alkaline Phosphatase (35-129) units/L Total Protein (6.3-8.2) g/dL Albumin (3.9-5) g/dL Albumin/Globulin Ratio % HCG, Qual Negative (Negative) - Radiology Data Radiology results: report reviewed CHEST 2 VIEWS INDICATION / CLINICAL INFORMATION: cough, fever. COMPARISON: Chest radiograph 06/04/2019 FINDINGS: SUPPORT DEVICES: None. HEART / MEDIASTINUM: No significant abnormality. LUNGS / PLEURA: No significant pulmonary or pleural abnormality. No pneumothorax. ADDITIONAL FINDINGS: No significant additional findings. IMPRESSION: No acute finding. No significant change. Signer Name: Ramu Rzizo MD Signed: 06/05/2019 10:41 PM Workstation Name: [id number] Transcribed By: EUSEBIO Dictated By: Ramu Rizzo MD Electronically Authenticated By: Ramu Rizzo MD Signed Date/Time: 06/05/192240 DD/ 39 TD/TT: - Medical Decision Making Patient is a 29-year-old female presents emergency room with complaints of URI symptoms that began yesterday. she states the fever began today. She has associated cough, headache, chills, generalized body ache, fever, nausea. She denies any shortness of breath, chest pain, vomiting, diarrhea, urinary symptoms, abdominal pain. She has a past medical history of hypertension. She has an allergy to Rocephin. She denies any sick contacts or recent travel or recent surgeries. Patient was evaluated in the emergency department yesterday manager safe with similar symptoms but did not have a fever at that time and had a chest x-ray performed with no acute process, labs did show some decrease in the white blood cell count and platelet at that time. Vitals with elevated temp and blood pressure. Chest x-ray with no acute process. Rapid flu is negative. Labs significant for neutropenia at 2.3, lymphocytopenia at 0.5, thrombocytopenia at 88. hCG is negative. Patient given 1 L IV fluid, Benadryl, Reglan, Tylenol.Discussed case with Dr. Hartley, ER attending regarding patient history and results recommended admission to the hospitalist service. Spoke with Dr. Maldonado, hospitalist regarding patient history and results, advised to place on droplet precautions and to submit COVID 19 form to the CDC, will accept and resume care of patient, will admit patient to the hospital. CDC form filled out and scanned into chart by registration. pt admitted to hospitalist service on contact/droplet precautions. - Differential Diagnosis URI, PNA, Influenza, acute bronchitis, COVID 19, viral syndrome Critical care attestation.: If time is entered above; I have spent that time in minutes in the direct care of this critically ill patient, excluding procedure time. ED Disposition Is pt being admited?: Yes Does the pt Need Aspirin: No Time of Disposition: 23:24
[2019-06-05 21:57] LABS: Bilirubin,Urine NEG (Negative); Blood,Urine NEG (Negative); Color,Urine Yellow (Yellow); Mucus,Urine 2+ /HPF; Protein,Urine <15 mg/dL mg/dL (Negative)
[2019-06-05 21:58] LABS: HCG Qualitative,Urine Negative (Negative)
[2019-06-05 22:10] LABS: Eosinophils % (Manual) 0 % (0.0-4.3); Total Cells Counted 100
[2019-06-05 22:13] LABS: Anisocytosis Few; Giant Platelets Rare; Large Platelets Few; Ovalocytes Few; Platelet Estimate Consistent w Auto
--- NOTE | 2019-06-05 22:45 | XRay Report ---
CHEST 2 VIEWS INDICATION / CLINICAL INFORMATION: cough, fever. COMPARISON: Chest radiograph 06/04/2019 FINDINGS: SUPPORT DEVICES: None. HEART / MEDIASTINUM: No significant abnormality. LUNGS / PLEURA: No significant pulmonary or pleural abnormality. No pneumothorax. ADDITIONAL FINDINGS: No significant additional findings. IMPRESSION: No acute finding. No significant change. Signer Name: Ramu Rizzo MD Signed: 06/05/2019 10:41 PM Workstation Name: [id number]
--- NOTE | 2019-06-05 23:57 | History and Physical Report ---
History of Present Illness History of present illness: 29-year-old woman with a history of hypertension comes emergency room for evaluation. Patient was initially seen in the emergency room on the for tooth pain, then on the for an episode of palpitation. She returns today complaining of a nonproductive cough, fever, chills, body aches, fatigue. [place], denies recent travel, sick contacts. She has a history of thrombocytopenia since 2018, no bleeding from mucosal surfaces. Patient will be admitted for upper respiratory symptoms, possible baer Review Of Systems: Constitutional: no weight loss Ears, eyes, nose, mouth and throat: no nasal congestion, no nasal discharge, no sinus pressure, blurry vision, diplopia Neck: No neck pain or rigidity. Cardiovascular: No palpitations, chest pain Respiratory: No shortness of breath, cough Gastrointestinal: No hematochezia, abdominal pain Genitourinary : no dysuria, frequency Musculoskeletal: no joint pain Integumentary: no rash, no pruritis Neurological: no parathesias, focal weakness Endocrine: no cold or heat intolerance, no polyuria or polydipsia Hematologic/Lymphatic: no easy bruising, no easy bleeding, no gland swelling Allergic/Immunologic: no urticaria, no angioedema. PAST MEDICAL HISTORY: Hypertension PAST SURGICAL HISTORY: None SOCIAL HISTORY: Denies alcohol, tobacco, drugs FAMILY HISTORY: Hypertension Medications and Allergies Allergies Allergy/AdvReac Type Severity Reaction Status Date / Time ceftriaxone [From Rocephin] Allergy Unknown Verified 07/07/18 17:51 Home Medications Medication Instructions Recorded Confirmed Last Taken Type Omeprazole 40 mg PO DAILY #30 capsule. 07/07/18 Unknown Rx Sucralfate [Carafate] 1 gm PO ACHS 7 Days #28 tablet 07/07/18 Unknown Rx methOCARBAMOL [Robaxin TAB] 500 mg PO Q6H #20 tablet 01/31/19 Unknown Rx Ibuprofen [Motrin 600 MG tab] 600 mg PO Q8H PRN #20 tablet 06/03/19 Unknown Rx traMADoL [Ultram 50 MG tab] 50 mg PO Q6HR PRN #7 tablet 06/03/19 Unknown Rx amLODIPine 10 mg PO DAILY #30 tablet 06/09/19 Unknown Rx levoFLOXacin [Levaquin TAB] 750 mg PO DAILY #3 tablet 06/09/19 Unknown Rx Active Meds: Active Medications Metoclopramide HCl (Reglan) 10 mg IV Q6H PRN PRN Reason: Nausea And Vomiting Exam - Physical Exam Narrative exam: Gen. appearance: Patient lying in bed, no apparent distress HEENT: Normocephalic, atraumatic, pupils equally round and reactive to light, extraocular movement intact, and no sclericterus,. No JVD or thyromegaly or nodule,neck supple, no carotid bruit ,mucous membranes moist, no exudate or erythema Heart: S1, S2, regular rate and rhythm Lungs: Clear bilaterally, breathing comfortable Abdomen: Positive bowel sounds, nontender, nondistended, no organomegaly Extremity: no edema, cyanosis, clubbing Skin: No rash, nodules, warm, dry Neuro: Cranial nerves II to XII intact, speech is fluent, moves extremities, sensory intact - Constitutional Vitals: Temp Pulse Resp BP Pulse Ox 100.5 F H 98 H 18 152/101 99 06/05/19 19:19 06/05/19 19:19 06/05/19 19:19 06/05/19 19:19 06/05/19 19:19 Results - Labs CBC & Chem 7: 06/06/19 04:11 06/06/19 04:11 Labs: Abnormal lab results 06/05/19 06/05/19 06/05/19 Range/Units 19:27 19:27 19:27 WBC 2.3 L (4.5-11.0) K/mm3 RBC 5.50 H (3.65-5.03) M/mm3 Hgb 14.4 H (10.1-14.3) gm/dl Hct 45.5 H (30.3-42.9) % MCH 26 L (28-32) pg RDW 16.0 H (13.2-15.2) % Plt Count 88 L (140-440) K/mm3 Seg Neutrophils # Man (1.8-7.7) K/mm3 Lymphocytes # (Manual) (1.2-5.4) K/mm3 Sodium 133 L (137-145) mmol/L Chloride 96.5 L (98-107) mmol/L Carbon Dioxide 20 L D (22-30) mmol/L Albumin 3.8 L (3.9-5) g/dL Urine WBC (Auto) (0.0-6.0) /HPF 06/05/19 06/05/19 Range/Units Unknown Unknown WBC 2.3 L (4.5-11.0) K/mm3 RBC 5.41 H (3.65-5.03) M/mm3 Hgb (10.1-14.3) gm/dl Hct 44.6 H (30.3-42.9) % MCH 26 L (28-32) pg RDW 16.2 H (13.2-15.2) % Plt Count 97 L (140-440) K/mm3 Seg Neutrophils # Man 1.5 L (1.8-7.7) K/mm3 Lymphocytes # (Manual) 0.5 L (1.2-5.4) K/mm3 Sodium (137-145) mmol/L Chloride (98-107) mmol/L Carbon Dioxide (22-30) mmol/L Albumin (3.9-5) g/dL Urine WBC (Auto) 8.0 H (0.0-6.0) /HPF - Imaging and Cardiology EKG: image reviewed Chest x-ray: report reviewed Assessment and Plan Assessment Upper respiratory symptoms, rule out COVID Patient will be placed on droplet and contact precautions COVID forms were filled out, consult ID Hypertension IV hydralazine for control,, continue outpatient medications Chronic leukocytopenia and leukopenia, continue to monitor Follow-up HIV testing Urinary tract infection Start IV Levaquin, follow culture DVT prophylax
[2019-06-06] MEDS ORDERED: ONDANSETRON 4 MG/2 ML INJ IV PRN (00:10)
[2019-06-06] MEDS ORDERED: ACETAMINOPHEN 325 MG TAB PO PRN (00:10)
[2019-06-06] MEDS ORDERED: hydrALAZINE 20 MG/1 ML INJ IV PRN (00:15)
[2019-06-06] MEDS ORDERED: diphenhydrAMINE 50 MG/ML VIAL ONE (01:53)
[2019-06-06] MEDS ORDERED: SODIUM CHLORIDE 0.9% 1000 ML 1,000 ML ONE (01:53)
[2019-06-06] MEDS ORDERED: ACETAMINOPHEN 325 MG TAB ONE (01:54)
[2019-06-06] MEDS: oxyCODONE /ACETAMINOPHEN 5-325MG TAB PO PRN ×2 (01:57→17:40)
[2019-06-06] MEDS ORDERED: oxyCODONE /ACETAMINOPHEN 5-325MG TAB ONE (01:57)
[2019-06-06 04:47] LABS: Hematocrit 43.7 % (30.3-42.9); Hemoglobin 14.1 gm/dl (10.1-14.3); Mean Corpuscular HGB Conc 32 % (30-34); Mean Corpuscular Volume 82 fl (79-97); Red Blood Count 5.31 M/mm3 (3.65-5.03); Red Cell Distribution Width 16.2 % (13.2-15.2)
[2019-06-06 04:49] LABS: Platelet Count 91 K/mm3 (140-440)
[2019-06-06 05:38] LABS: BUN/Creatinine Ratio 10; Blood Urea Nitrogen 8 mg/dL (7-17); Calcium 8.7 mg/dL (8.4-10.2); Hemolysis Index 5
[2019-06-06 05:53] LABS: Anisocytosis 1+; Basophils % (Manual) 0 % (0.0-1.8); Platelet Estimate Consistent w Auto; Total Cells Counted 100
--- NOTE | 2019-06-06 09:25 | Progress Note ---
Assessment and Plan Assessment and plan: --Upper respiratory symptoms, rule out COVID Patient will be placed on droplet and contact precautions COVID forms were filled out, consult ID --Febrile illness; low-grade fever --Hypertension IV hydralazine for control,, continue outpatient medications --Chronic leukopenia --Thrombocytopenia; due to chronic illness No evidence of bleeding, closely monitor Transfuse platelets as needed --Urinary tract infection Start IV Levaquin, follow culture --DVT prophylax; Lovenox To closely and adjust management as needed Plan of care reviewed with the patient And her nurse History Interval history: Patient seen and examined at the bedside in isolation room Patient's chart and other medical records reviewed Patient complains of mild shortness of breath and cough Denies chest pain Alert awake oriented Vital signs noted Hospitalist Physical - Constitutional Vitals: Temp Pulse Resp BP Pulse Ox 98.6 F 60 19 107/55 98 06/06/19 04:58 06/06/19 06:30 06/06/19 06:30 06/06/19 06:30 06/06/19 06:30 General appearance: Present: mild distress, well-nourished, obese - EENT Eyes: Present: PERRL, EOM intact - Neck Neck: Present: supple, normal ROM - Respiratory Respiratory effort: normal Respiratory: bilateral: diminished, rhonchi, negative: rales, wheezing - Cardiovascular Rhythm: regular Heart Sounds: Present: S1 & S2 - Extremities Extremities: no ischemia, No edema - Abdominal General gastrointestinal: soft, non-tender, non-distended, normal bowel sounds - Integumentary Integumentary: Present: clear, warm - Psychiatric Psychiatric: appropriate mood/affect, cooperative - Neurologic Neurologic: CNII-XII intact, moves all extremities Results - Labs CBC & Chem 7: 06/06/19 04:11 06/06/19 04:11 Labs: Laboratory Last Values WBC 2.5 K/mm3 (4.5-11.0) L 06/06/19 04:11 RBC 5.31 M/mm3 (3.65-5.03) H 06/06/19 04:11 Hgb 14.1 gm/dl (10.1-14.3) 06/06/19 04:11 Hct 43.7 % (30.3-42.9) H 06/06/19 04:11 MCV 82 fl (79-97) 06/06/19 04:11 MCH 27 pg (28-32) L 06/06/19 04:11 MCHC 32 % (30-34) 06/06/19 04:11 RDW 16.2 % (13.2-15.2) H 06/06/19 04:11 Plt Count 91 K/mm3 (140-440) L 06/06/19 04:11 [place] % (Auto) Performance Improvement Manager 06/06/19 04:11 Add Manual Diff Complete 06/06/19 04:11 Total Counted 100 06/06/19 04:11 Seg Neuts % (Manual) 60.0 % (40.0-70.0) 06/06/19 04:11 Band Neutrophils % 0 % 06/06/19 04:11 Lymphocytes % (Manual) 22.0 % (13.4-35.0) 06/06/19 04:11 Reactive Lymphs % (Man) 0 % 06/06/19 04:11 Monocytes % (Manual) 17.0 % (0.0-7.3) H 06/06/19 04:11 Eosinophils % (Manual) 1.0 % (0.0-4.3) 06/06/19 04:11 Basophils % (Manual) 0 % (0.0-1.8) 06/06/19 04:11 Metamyelocytes % 0 % 06/06/19 04:11 Myelocytes % 0 % 06/06/19 04:11 Promyelocytes % 0 % 06/06/19 04:11 Blast Cells % 0 % 06/06/19 04:11 Nucleated RBC % Not Reportable 06/06/19 04:11 Seg Neutrophils # Man 1.5 K/mm3 (1.8-7.7) L 06/06/19 04:11 Band Neutrophils # 0.0 K/mm3 06/06/19 04:11 Lymphocytes # (Manual) 0.6 K/mm3 (1.2-5.4) L 06/06/19 04:11 Abs React Lymphs (Man) 0.0 K/mm3 06/06/19 04:11 Monocytes # (Manual) 0.4 K/mm3 (0.0-0.8) 06/06/19 04:11 Eosinophils # (Manual) 0.0 K/mm3 (0.0-0.4) 06/06/19 04:11 Basophils # (Manual) 0.0 K/mm3 (0.0-0.1) 06/06/19 04:11 Metamyelocytes # 0.0 K/mm3 06/06/19 04:11 Myelocytes # 0.0 K/mm3 06/06/19 04:11 Promyelocytes # 0.0 K/mm3 06/06/19 04:11 Blast Cells # 0.0 K/mm3 06/06/19 04:11 WBC Morphology Not Reportable 06/06/19 04:11 Hypersegmented Neuts Not Reportable 06/06/19 04:11 Hyposegmented Neuts Not Reportable 06/06/19 04:11 Hypogranular Neuts Not Reportable 06/06/19 04:11 Smudge Cells Not Reportable 06/06/19 04:11 Toxic Granulation Not Reportable 06/06/19 04:11 Toxic Vacuolation Not Reportable 06/06/19 04:11 Dohle Bodies Not Reportable 06/06/19 04:11 Pelger-Huet Anomaly Not Reportable 06/06/19 04:11 Liz Rods Not Reportable 06/06/19 04:11 Platelet Estimate Consistent w auto 06/06/19 04:11 Clumped Platelets Not Reportable 06/06/19 04:11 Plt Clumps, EDTA Not Reportable 06/06/19 04:11 Large Platelets Not Reportable 06/06/19 04:11 Giant Platelets Not Reportable 06/06/19 04:11 Platelet Satelliting Not Reportable 06/06/19 04:11 Plt Morphology Comment Not Reportable 06/06/19 04:11 RBC Morphology Not Reportable 06/06/19 04:11 Dimorphic RBCs Not Reportable 06/06/19 04:11 Polychromasia Not Reportable 06/06/19 04:11 Hypochromasia Not Reportable 06/06/19 04:11 Poikilocytosis Not Reportable 06/06/19 04:11 Anisocytosis 1+ 06/06/19 04:11 Microcytosis Not Reportable 06/06/19 04:11 Macrocytosis Not Reportable 06/06/19 04:11 Spherocytes Not Reportable 06/06/19 04:11 Pappenheimer Bodies Not Reportable 06/06/19 04:11 Sickle Cells Not Reportable 06/06/19 04:11 Target Cells Not Reportable 06/06/19 04:11 Tear Drop Cells Not Reportable 06/06/19 04:11 Ovalocytes Not Reportable 06/06/19 04:11 Helmet Cells Not Reportable 06/06/19 04:11 [place] Bodies Not Reportable 06/06/19 04:11 [place] Rings Not Reportable 06/06/19 04:11 [place] Cells Not Reportable 06/06/19 04:11 Bite Cells Not Reportable 06/06/19 04:11 Crenated Cell Not Reportable 06/06/19 04:11 Elliptocytes Not Reportable 06/06/19 04:11 Acanthocytes (Spur) Not Reportable 06/06/19 04:11 Rouleaux Not Reportable 06/06/19 04:11 Hemoglobin C Crystals Not Reportable 06/06/19 04:11 Schistocytes Not Reportable 06/06/19 04:11 Malaria parasites Not Reportable 06/06/19 04:11 Fran Bodies Not Reportable 06/06/19 04:11 Hem Pathologist Commnt No 06/06/19 04:11 Sodium 137 mmol/L (137-145) 06/06/19 04:11 Potassium 3.9 mmol/L (3.6-5.0) 06/06/19 04:11 Chloride 96.7 mmol/L (98-107) L 06/06/19 04:11 Carbon Dioxide 26 mmol/L (22-30) 06/06/19 04:11 Anion Gap 18 mmol/L 06/06/19 04:11 BUN 8 mg/dL (7-17) 06/06/19 04:11 Creatinine 0.8 mg/dL (0.7-1.2) 06/06/19 04:11 Estimated GFR > 60 ml/min 06/06/19 04:11 BUN/Creatinine Ratio 10 % 06/06/19 04:11 Glucose 67 mg/dL (65-100) 06/06/19 04:11 Calcium 8.7 mg/dL (8.4-10.2) 06/06/19 04:11 Total Bilirubin 0.20 mg/dL (0.1-1.2) 06/05/19 19:27 Direct Bilirubin < 0.2 mg/dL (0-0.2) 06/05/19 19:27 Indirect Bilirubin 0.0 mg/dL 06/05/19 19:27 AST 26 units/L (5-40) 06/05/19 19:27 ALT 13 units/L (7-56) 06/05/19 19:27 Alkaline Phosphatase 97 units/L (35-129) 06/05/19 19:27 Total Protein 7.1 g/dL (6.3-8.2) 06/05/19 19:27 Albumin 3.8 g/dL (3.9-5) L 06/05/19 19:27 Albumin/Globulin Ratio 1.2 % 06/05/19 19:27 HCG, Qual Negative (Negative) 06/05/19 20:49 Urine Color Yellow (Yellow) 06/05/19 Unknown Urine Turbidity Clear (Clear) 06/05/19 Unknown Urine pH 6.0 (5.0-7.0) 06/05/19 Unknown Ur Specific [place] 1.020 (1.003-1.030) 06/05/19 Unknown Urine Protein <15 mg/dl mg/dL (Negative) 06/05/19 Unknown Urine Glucose (UA) Neg mg/dL (Negative) 06/05/19 Unknown Urine Ketones Neg mg/dL (Negative) 06/05/19 Unknown Urine Blood Neg (Negative) 06/05/19 Unknown Urine Nitrite Neg (Negative) 06/05/19 Unknown Urine Bilirubin Neg (Negative) 06/05/19 Unknown Urine Urobilinogen 2.0 mg/dL (<2.0) 06/05/19 Unknown Ur Leukocyte Esterase Sm (Negative) 06/05/19 Unknown Urine WBC (Auto) 8.0 /HPF (0.0-6.0) H 06/05/19 Unknown Urine RBC (Auto) 6.0 /HPF (0.0-6.0) 06/05/19 Unknown U Epithel Cells (Auto) 3.0 /HPF (0-13.0) 06/05/19 Unknown Urine Mucus 2+ /HPF 06/05/19 Unknown Urine HCG, Qual Negative (Negative) 06/05/19 Unknown Influenza A (Rapid) Negative (Negative) 06/05/19 Unknown Influenza B (Rapid) Negative (Negative) 06/05/19 Unknown Active Medications - Current Medications Current Medications: Generic Name Dose Route Start Last Admin Trade Name Freq PRN Reason Stop Dose Admin Acetaminophen 650 mg 06/06/19 00:10 Tylenol PO Q4H PRN Pain MILD(1-3)/Fever >100.5/CHISHOLM Enoxaparin Sodium 40 mg 06/06/19 10:00 Enoxaparin SUB-Q QDAY REPLACED BY [facility] Hydralazine HCl 5 mg 06/06/19 00:15 Apresoline IV Q6H PRN Hypertension Sodium Chloride 1,000 mls @ 125 mls/hr 06/06/19 01:00 Nacl 0.45% 1000 Ml IV DIRECT DARRIN Levofloxacin/Dextrose 500 mg in 100 mls @ 100 mls/hr 06/06/19 10:00 Levaquin 500mg/100ml IV Q24HR REPLACED BY [facility] Protocol Metoclopramide HCl 10 mg 06/05/19 20:47 Reglan IV Q6H PRN Nausea And Vomiting Ondansetron HCl 4 mg 06/06/19 00:10 Zofran IV Q8H PRN Nausea And Vomiting Oxycodone/Acetaminophen 1 tab 06/06/19 00:10 06/06/19 01:57 Percocet 5/325 PO 1 tab Q4H PRN Administration Pain, Moderate (4-6) Sodium Chloride 10 ml 06/06/19 10:00 Sodium Chloride Flush Syringe 10 Ml IV BID DARRIN Sodium Chloride 10 ml 06/06/19 00:10 Sodium Chloride Flush Syringe 10 Ml IV PRN PRN LINE FLUSH
[2019-06-06] MEDS ORDERED: ENOXAPARIN 40 MG/0.4 ML INJ SUB-Q ONE (10:04)
[2019-06-06] MEDS: ENOXAPARIN 40 MG/0.4 ML INJ SUB-Q SCH (10:17)
--- NOTE | 2019-06-06 17:15 | Consultation ---
History of Present Illness - Reason for Consult Consult date: 06/06/19 - History of Present Illness 29-year-old female past medical history hypertension admitted to the hospital with complaints of fever, chills, myalgias, and cough. She also complains of fatigue, headache, nausea. She otherwise denies shortness of breath or abdominal pain. She was recently seen here in the hospital on 02 June for tooth pain, and on the for palpitations. Chest x-ray at that time showed no acute abnormality. Febrile to 100.5 degrees, low white count of 2.5 and associated lymphopenia. She is currently receiving levofloxacin. Flu test is negative. Blood cultures are currently pending as are urine cultures. Imaging personally reviewed: Chest x-ray: No acute abnormality Review of Systems: Bold if positive, otherwise negative General: fevers, chills, rigors HEENT: visual disturbance, diplopia, eye pain Respiratory: cough, sputum, hemoptysis, shortness of breath Cardiovascular: chest pain, syncope Gastrointestinal: nausea, vomiting, diarrhea, abdominal pain Genitourinary: dysuria, hematuria, flank pain Musculoskeletal: neck pain, back pain, joint pain, edema Neurologic: headaches, seizures Hematologic: easy bruising or bleeding Endocrine: night sweats, acute weight loss Skin: rash, jaundice, redness Psychiatric: suicidal, homicidal ideation Medications and Allergies Allergies Allergy/AdvReac Type Severity Reaction Status Date / Time ceftriaxone [From Rocephin] Allergy Unknown Verified 07/07/18 17:51 Home Medications Medication Instructions Recorded Confirmed Last Taken Type Clindamycin [Clindamycin CAP] 300 mg PO Q8H 10 Days #30 cap 03/07/18 Unknown Rx Omeprazole 40 mg PO DAILY #30 capsule. 07/07/18 Unknown Rx Sucralfate [Carafate] 1 gm PO ACHS 7 Days #28 tablet 07/07/18 Unknown Rx levoFLOXacin [Levaquin TAB] 500 mg PO QDAY #10 tablet 07/07/18 Unknown Rx Naproxen 500 mg PO BID 7 Days #14 tablet 01/31/19 Unknown Rx methOCARBAMOL [Robaxin TAB] 500 mg PO Q6H #20 tablet 01/31/19 Unknown Rx Clindamycin [Clindamycin CAP] 450 mg PO TID 7 Days #63 capsule 06/03/19 Unknown Rx Ibuprofen [Motrin 600 MG tab] 600 mg PO Q8H PRN #20 tablet 06/03/19 Unknown Rx Penicillin Vk [Veetids TAB] 500 mg PO QID 7 Days #56 tablet 06/03/19 Unknown Rx traMADoL [Ultram 50 MG tab] 50 mg PO Q6HR PRN #7 tablet 06/03/19 Unknown Rx amLODIPine 10 mg PO DAILY #30 tablet 06/04/19 Unknown Rx Active Meds: Active Medications Acetaminophen (Tylenol) 650 mg PO Q4H PRN PRN Reason: Pain MILD(1-3)/Fever >100.5/CHISHOLM Enoxaparin Sodium (Enoxaparin) 40 mg SUB-Q QDAY [facility] Last Admin: 06/06/19 10:17 Dose: 40 mg Documented by: Hydralazine HCl (Apresoline) 5 mg IV Q6H PRN PRN Reason: Hypertension Sodium Chloride (Nacl 0.45% 1000 Ml) 1,000 mls @ 125 mls/hr IV DIRECT DARRIN Levofloxacin/Dextrose (Levaquin 500mg/100ml) 500 mg in 100 mls @ 100 mls/hr IV Q24HR [facility]; Protocol Last Admin: 06/06/19 10:17 Dose: 100 mls/hr Documented by: Metoclopramide HCl (Reglan) 10 mg IV Q6H PRN PRN Reason: Nausea And Vomiting Ondansetron HCl (Zofran) 4 mg IV Q8H PRN PRN Reason: Nausea And Vomiting Oxycodone/Acetaminophen (Percocet 5/325) 1 tab PO Q4H PRN PRN Reason: Pain, Moderate (4-6) Last Admin: 06/06/19 01:57 Dose: 1 tab Documented by: Sodium Chloride (Sodium Chloride Flush Syringe 10 Ml) 10 ml IV BID [facility] Last Admin: 06/06/19 10:18 Dose: 10 ml Documented by: Sodium Chloride (Sodium Chloride Flush Syringe 10 Ml) 10 ml IV PRN PRN PRN Reason: LINE FLUSH Physical Examination - Physical Exam Narrative exam: Physical Exam: Constitutional: Alert, cooperative. No acute distress. Obese Head, Ears, Nose: Normocephalic, atraumatic. External ears, nose normal Eyes: Conjunctivae/corneas clear. No icterus. No ptosis. Neck: Supple, no meningeal signs Oral: dentition fair, no thrush Cardiovascular: S1, S2 normal. Respiratory: Good air entry, clear to auscultation bilaterally GI: Soft, non-tender; bowel sounds normal. No peritoneal signs. Musculoskeletal: No pedal edema, no cyanosis. Skin: No rash or abscess Hem/Lymphatic: No palpable cervical or supraclavicular nodes. No lymphangitis Psych: Mood ok. Affect normal Neurological: Awake, alert, oriented. No gross abnormality - Constitutional Vitals: Vital Signs Temp Pulse Resp BP Pulse Ox 98.6 F 55 L 22 140/88 97 06/06/19 04:58 06/06/19 15:00 06/06/19 16:55 06/06/19 15:00 06/06/19 15:00 Temperature -Last 24 Hours Temperature 98.6 F Temperature 100.5 F Temperature 100.3 F Results - Labs CBC & Chem 7: 06/06/19 04:11 06/06/19 04:11 Labs: Abnormal lab results 06/05/19 06/05/19 06/05/19 Range/Units 19:27 19:27 19:27 WBC 2.3 L (4.5-11.0) K/mm3 RBC 5.50 H (3.65-5.03) M/mm3 Hgb 14.4 H (10.1-14.3) gm/dl Hct 45.5 H (30.3-42.9) % MCH 26 L (28-32) pg RDW 16.0 H (13.2-15.2) % Plt Count 88 L (140-440) K/mm3 Monocytes % (Manual) (0.0-7.3) % Seg Neutrophils # Man (1.8-7.7) K/mm3 Lymphocytes # (Manual) (1.2-5.4) K/mm3 Sodium 133 L (137-145) mmol/L Chloride 96.5 L (98-107) mmol/L Carbon Dioxide 20 L D (22-30) mmol/L Albumin 3.8 L (3.9-5) g/dL Urine WBC (Auto) (0.0-6.0) /HPF 06/05/19 06/05/19 06/06/19 Range/Units Unknown Unknown 04:11 WBC 2.3 L 2.5 L (4.5-11.0) K/mm3 RBC 5.41 H 5.31 H (3.65-5.03) M/mm3 Hgb (10.1-14.3) gm/dl Hct 44.6 H 43.7 H (30.3-42.9) % MCH 26 L 27 L (28-32) pg RDW 16.2 H 16.2 H (13.2-15.2) % Plt Count 97 L 91 L (140-440) K/mm3 Monocytes % (Manual) 17.0 H (0.0-7.3) % Seg Neutrophils # Man 1.5 L 1.5 L (1.8-7.7) K/mm3 Lymphocytes # (Manual) 0.5 L 0.6 L (1.2-5.4) K/mm3 Sodium (137-145) mmol/L Chloride (98-107) mmol/L Carbon Dioxide (22-30) mmol/L Albumin (3.9-5) g/dL Urine WBC (Auto) 8.0 H (0.0-6.0) /HPF 06/06/19 Range/Units 04:11 WBC (4.5-11.0) K/mm3 RBC (3.65-5.03) M/mm3 Hgb (10.1-14.3) gm/dl Hct (30.3-42.9) % MCH (28-32) pg RDW (13.2-15.2) % Plt Count (140-440) K/mm3 Monocytes % (Manual) (0.0-7.3) % Seg Neutrophils # Man (1.8-7.7) K/mm3 Lymphocytes # (Manual) (1.2-5.4) K/mm3 Sodium (137-145) mmol/L Chloride 96.7 L (98-107) mmol/L Carbon Dioxide (22-30) mmol/L Albumin (3.9-5) g/dL Urine WBC (Auto) (0.0-6.0) /HPF Assessment and Plan Cultures: Blood culture 06/06/2019 pending Urine culture 06/05/2019 pending A/P: 39-year-old female past medical history hypertension, obesity admitted to the hospital with URI symptoms concerning for COVID-19. #COVID-19 rule out: Patient with consistent URI symptoms, though no acute pneumonia seen on chest x-ray. The patient is leukopenic, the patient's with poor immune system can sometimes have trouble creating the information required to be seen on chest x-ray. Survey already filled out, follow-up test results with [facility] #URI: Ordered procalcitonin, continue levofloxacin for now pending results. #Fevers: Possibly due to pneumonia as per above, denies any other symptoms including dysuria or symptoms concerning for urinary tract infection. #Leukopenia: Agree with sending test for HIV, already obtained and sent to lab. Recs: -Follow-up [facility] testing for COVID-19 -Continue levofloxacin for now to complete 5 days per possible community-a cquired pneumonia -Ordered procalcitonin for morning labs -Ordered blood cultures -Follow-up urine cultures -Follow-up HIV testing Thank for the consult, will continue to follow MD [facility] M: [phone] O: [phone] F: [phone]
[2019-06-06] MEDS: SODIUM CHLORIDE 0.45% 1000 ML 1,000 ML IV SCH (17:42)
[2019-06-06] MEDS: NAPROXEN 500 MG TAB PO SCH (21:16)
[2019-06-07] MEDS: ENOXAPARIN 40 MG/0.4 ML INJ SUB-Q SCH (10:14)
[2019-06-07] MEDS: NAPROXEN 500 MG TAB PO SCH ×2 (10:14→22:27)
[2019-06-07] MEDS: amLODIPine 10 MG TAB PO SCH (10:15)
[2019-06-07] MEDS ORDERED: NICOTINE 14 MG/24 HR PATCH TD ONE (15:44)
[2019-06-07] MEDS: SODIUM CHLORIDE 0.45% 1000 ML 1,000 ML IV SCH (18:18)
--- NOTE | 2019-06-07 18:59 | Progress Note ---
Assessment and Plan Assessment and plan: --Febrile illness; low-grade fever To rule out Covid 19, forms filled out ID evaluated the patient --Upper respiratory symptoms, rule out COVID Patient will be placed on droplet and contact precautions Empiric antibiotics, ID following --Hypertension IV hydralazine for control,, continue outpatient medications --Chronic leukopenia --Thrombocytopenia; due to chronic illness No evidence of bleeding, closely monitor Transfuse platelets as needed --Urinary tract infection Start IV Levaquin, follow culture --DVT prophylax; Lovenox Follow clinically and adjust as needed Contact and droplet isolation implemented Plan of care reviewed with the patient and her nurse History Interval history: Possible Covidien 19 patient On contact and droplet isolation Patient seen and examined at the bedside Patient's chart medications labs reviewed Patient complains of generalized weakness Vital signs reviewed Hospitalist Physical - Constitutional Vitals: Temp Pulse Resp BP Pulse Ox 98.4 F 58 L 20 119/71 99 06/07/19 15:20 06/07/19 15:20 06/07/19 15:20 06/07/19 15:20 06/07/19 15:20 General appearance: Present: mild distress, well-nourished, obese - EENT Eyes: Present: PERRL, EOM intact - Neck Neck: Present: supple, normal ROM - Respiratory Respiratory effort: normal Respiratory: bilateral: diminished, negative: rales, rhonchi, wheezing - Cardiovascular Rhythm: regular Heart Sounds: Present: S1 & S2 - Extremities Extremities: no ischemia, No edema - Abdominal General gastrointestinal: soft, non-tender, non-distended, normal bowel sounds - Integumentary Integumentary: Present: clear, warm - Psychiatric Psychiatric: appropriate mood/affect, cooperative - Neurologic Neurologic: moves all extremities Results - Labs CBC & Chem 7: 06/06/19 04:11 06/06/19 04:11 Labs: Laboratory Last Values WBC 2.5 K/mm3 (4.5-11.0) L 06/06/19 04:11 RBC 5.31 M/mm3 (3.65-5.03) H 06/06/19 04:11 Hgb 14.1 gm/dl (10.1-14.3) 06/06/19 04:11 Hct 43.7 % (30.3-42.9) H 06/06/19 04:11 MCV 82 fl (79-97) 06/06/19 04:11 MCH 27 pg (28-32) L 06/06/19 04:11 MCHC 32 % (30-34) 06/06/19 04:11 RDW 16.2 % (13.2-15.2) H 06/06/19 04:11 Plt Count 91 K/mm3 (140-440) L 06/06/19 04:11 [place] % (Auto) Shine Worker 06/06/19 04:11 Add Manual Diff Complete 06/06/19 04:11 Total Counted 100 06/06/19 04:11 Seg Neuts % (Manual) 60.0 % (40.0-70.0) 06/06/19 04:11 Band Neutrophils % 0 % 06/06/19 04:11 Lymphocytes % (Manual) 22.0 % (13.4-35.0) 06/06/19 04:11 Reactive Lymphs % (Man) 0 % 06/06/19 04:11 Monocytes % (Manual) 17.0 % (0.0-7.3) H 06/06/19 04:11 Eosinophils % (Manual) 1.0 % (0.0-4.3) 06/06/19 04:11 Basophils % (Manual) 0 % (0.0-1.8) 06/06/19 04:11 Metamyelocytes % 0 % 06/06/19 04:11 Myelocytes % 0 % 06/06/19 04:11 Promyelocytes % 0 % 06/06/19 04:11 Blast Cells % 0 % 06/06/19 04:11 Nucleated RBC % Not Reportable 06/06/19 04:11 Seg Neutrophils # Man 1.5 K/mm3 (1.8-7.7) L 06/06/19 04:11 Band Neutrophils # 0.0 K/mm3 06/06/19 04:11 Lymphocytes # (Manual) 0.6 K/mm3 (1.2-5.4) L 06/06/19 04:11 Abs React Lymphs (Man) 0.0 K/mm3 06/06/19 04:11 Monocytes # (Manual) 0.4 K/mm3 (0.0-0.8) 06/06/19 04:11 Eosinophils # (Manual) 0.0 K/mm3 (0.0-0.4) 06/06/19 04:11 Basophils # (Manual) 0.0 K/mm3 (0.0-0.1) 06/06/19 04:11 Metamyelocytes # 0.0 K/mm3 06/06/19 04:11 Myelocytes # 0.0 K/mm3 06/06/19 04:11 Promyelocytes # 0.0 K/mm3 06/06/19 04:11 Blast Cells # 0.0 K/mm3 06/06/19 04:11 WBC Morphology Not Reportable 06/06/19 04:11 Hypersegmented Neuts Not Reportable 06/06/19 04:11 Hyposegmented Neuts Not Reportable 06/06/19 04:11 Hypogranular Neuts Not Reportable 06/06/19 04:11 Smudge Cells Not Reportable 06/06/19 04:11 Toxic Granulation Not Reportable 06/06/19 04:11 Toxic Vacuolation Not Reportable 06/06/19 04:11 Dohle Bodies Not Reportable 06/06/19 04:11 Pelger-Huet Anomaly Not Reportable 06/06/19 04:11 Liz Rods Not Reportable 06/06/19 04:11 Platelet Estimate Consistent w auto 06/06/19 04:11 Clumped Platelets Not Reportable 06/06/19 04:11 Plt Clumps, EDTA Not Reportable 06/06/19 04:11 Large Platelets Not Reportable 06/06/19 04:11 Giant Platelets Not Reportable 06/06/19 04:11 Platelet Satelliting Not Reportable 06/06/19 04:11 Plt Morphology Comment Not Reportable 06/06/19 04:11 RBC Morphology Not Reportable 06/06/19 04:11 Dimorphic RBCs Not Reportable 06/06/19 04:11 Polychromasia Not Reportable 06/06/19 04:11 Hypochromasia Not Reportable 06/06/19 04:11 Poikilocytosis Not Reportable 06/06/19 04:11 Anisocytosis 1+ 06/06/19 04:11 Microcytosis Not Reportable 06/06/19 04:11 Macrocytosis Not Reportable 06/06/19 04:11 Spherocytes Not Reportable 06/06/19 04:11 Pappenheimer Bodies Not Reportable 06/06/19 04:11 Sickle Cells Not Reportable 06/06/19 04:11 Target Cells Not Reportable 06/06/19 04:11 Tear Drop Cells Not Reportable 06/06/19 04:11 Ovalocytes Not Reportable 06/06/19 04:11 Helmet Cells Not Reportable 06/06/19 04:11 Mcke[place] Bodies Not Reportable 06/06/19 04:11 [place] Rings Not Reportable 06/06/19 04:11 [place] Cells Not Reportable 06/06/19 04:11 Bite Cells Not Reportable 06/06/19 04:11 Crenated Cell Not Reportable 06/06/19 04:11 Elliptocytes Not Reportable 06/06/19 04:11 Acanthocytes (Spur) Not Reportable 06/06/19 04:11 Rouleaux Not Reportable 06/06/19 04:11 Hemoglobin C Crystals Not Reportable 06/06/19 04:11 Schistocytes Not Reportable 06/06/19 04:11 Malaria parasites Not Reportable 06/06/19 04:11 Fran Bodies Not Reportable 06/06/19 04:11 Hem Pathologist Commnt No 06/06/19 04:11 Sodium 137 mmol/L (137-145) 06/06/19 04:11 Potassium 3.9 mmol/L (3.6-5.0) 06/06/19 04:11 Chloride 96.7 mmol/L (98-107) L 06/06/19 04:11 Carbon Dioxide 26 mmol/L (22-30) 06/06/19 04:11 Anion Gap 18 mmol/L 06/06/19 04:11 BUN 8 mg/dL (7-17) 06/06/19 04:11 Creatinine 0.8 mg/dL (0.7-1.2) 06/06/19 04:11 Estimated GFR > 60 ml/min 06/06/19 04:11 BUN/Creatinine Ratio 10 % 06/06/19 04:11 Glucose 67 mg/dL (65-100) 06/06/19 04:11 Calcium 8.7 mg/dL (8.4-10.2) 06/06/19 04:11 Total Bilirubin 0.20 mg/dL (0.1-1.2) 06/05/19 19:27 Direct Bilirubin < 0.2 mg/dL (0-0.2) 06/05/19 19:27 Indirect Bilirubin 0.0 mg/dL 06/05/19 19:27 AST 26 units/L (5-40) 06/05/19 19:27 ALT 13 units/L (7-56) 06/05/19 19:27 Alkaline Phosphatase 97 units/L (35-129) 06/05/19 19:27 Total Protein 7.1 g/dL (6.3-8.2) 06/05/19 19: Albumin 3.8 g/dL (3.9-5) L 06/05/19 19: Albumin/Globulin Ratio 1.2 % 06/05/19 19: Procalcitonin < 0.05 ng/mL (<0.15) 06/06/19 20:54 HCG, Qual Negative (Negative) 06/05/19 20:49 Urine Color Yellow (Yellow) 06/05/19 Unknown Urine Turbidity Clear (Clear) 06/05/19 Unknown Urine pH 6.0 (5.0-7.0) 06/05/19 Unknown Ur Specific [place] 1.020 (1.003-1.030) 06/05/19 Unknown Urine Protein <15 mg/dl mg/dL (Negative) 06/05/19 Unknown Urine Glucose (UA) Neg mg/dL (Negative) 06/05/19 Unknown Urine Ketones Neg mg/dL (Negative) 06/05/19 Unknown Urine Blood Neg (Negative) 06/05/19 Unknown Urine Nitrite Neg (Negative) 06/05/19 Unknown Urine Bilirubin Neg (Negative) 06/05/19 Unknown Urine Urobilinogen 2.0 mg/dL (<2.0) 06/05/19 Unknown Ur Leukocyte Esterase Sm (Negative) 06/05/19 Unknown Urine WBC (Auto) 8.0 /HPF (0.0-6.0) H 06/05/19 Unknown Urine RBC (Auto) 6.0 /HPF (0.0-6.0) 06/05/19 Unknown U Epithel Cells (Auto) 3.0 /HPF (0-13.0) 06/05/19 Unknown Urine Mucus 2+ /HPF 06/05/19 Unknown Urine HCG, Qual Negative (Negative) 06/05/19 Unknown Influenza A (Rapid) Negative (Negative) 06/05/19 Unknown Influenza B (Rapid) Negative (Negative) 06/05/19 Unknown Microbiology: Microbiology 06/05/19 Unknown Urine,Clean Catch Urine Culture - Final 06/06/19 20:56 Peripheral/Venous Blood Culture - Preliminary Culture in Progress 06/06/19 20:56 Peripheral/Venous Blood Culture - Preliminary Culture in Progress Vogt/IV: Voiding Method Toilet IV Catheter Type [Right INT / Saline Lock Antecubital] Active Medications - Current Medications Current Medications: Generic Name Dose Route Start Last Admin Trade Name Freq PRN Reason Stop Dose Admin Acetaminophen 650 mg 06/06/19 00:10 Tylenol PO Q4H PRN Pain MILD(1-3)/Fever >100.5/CHISHOLM Amlodipine Besylate 10 mg 06/07/19 10:00 06/07/19 10:15 Amlodipine PO 10 mg DAILY DARRIN Administration Enoxaparin Sodium 40 mg 06/06/19 10:00 06/07/19 10:14 Enoxaparin SUB-Q 40 mg QDAY DARRIN Administration Hydralazine HCl 5 mg 06/06/19 00:15 Apresoline IV Q6H PRN Hypertension Sodium Chloride 1,000 mls @ 125 mls/hr 06/06/19 01:00 06/07/19 18:18 Nacl 0.45% 1000 Ml IV 125 mls/hr DIRECT DARRIN Administration Levofloxacin 750 mg 06/08/19 10:00 Levaquin PO 06/10/19 12:00 DAILY DARRIN Methocarbamol 500 mg 06/06/19 19:00 06/07/19 18:17 Robaxin PO 500 mg Q6H DARRIN Administration Metoclopramide HCl 10 mg 06/05/19 20:47 Reglan IV Q6H PRN Nausea And Vomiting Naproxen 500 mg 06/06/19 22:00 06/07/19 10:14 Naproxen PO 500 mg BID DARRIN Administration Ondansetron HCl 4 mg 06/06/19 00:10 Zofran IV Q8H PRN Nausea And Vomiting Oxycodone/Acetaminophen 1 tab 06/06/19 00:10 06/06/19 17:40 Percocet 5/325 PO 1 tab Q4H PRN Administration Pain, Moderate (4-6) Sodium Chloride 10 ml 06/06/19 10:00 06/07/19 10:15 Sodium Chloride Flush Syringe 10 Ml IV 10 ml BID DARRIN Administration Sodium Chloride 10 ml 06/06/19 00:10 Sodium Chloride Flush Syringe 10 Ml IV PRN PRN LINE FLUSH
[2019-06-07] MEDS: oxyCODONE /ACETAMINOPHEN 5-325MG TAB PO PRN (20:20)
[2019-06-08] MEDS: SODIUM CHLORIDE 0.45% 1000 ML 1,000 ML IV SCH ×2 (04:04→11:22)
--- NOTE | 2019-06-08 10:55 | Progress Note ---
Assessment and Plan Assessment and plan: --Febrile illness; low-grade fever To rule out Covid 19, forms filled out ID following --Urinary tract infection On IV Levaquin, follow culture Supportive care --Upper respiratory symptoms, rule out COVID Patient will be placed on droplet and contact precautions Empiric antibiotics, ID following --Hypertension IV hydralazine for control,, continue outpatient medications --Chronic leukopenia --Thrombocytopenia; due to chronic illness No evidence of bleeding, closely monitor Transfuse platelets as needed --DVT prophylax; Lovenox Follow clinically and adjust as needed Contact and droplet isolation implemented Plan of care reviewed with the patient and her nurse Follow Covir 19 test Possible discharge home tomorrow if stable History Interval history: Patient seen and examined at bedside this morning Patient's chart medications reviewed Feels slightly better Covid-19 report still pending Mild shortness of breath and cough Vital signs noted Hospitalist Physical - Constitutional Vitals: Temp Pulse Resp BP Pulse Ox 98.1 F 57 L 18 126/80 100 06/08/19 05:38 06/08/19 05:38 06/08/19 05:38 06/08/19 05:38 06/08/19 05:38 General appearance: Present: mild distress, well-nourished, obese - EENT Eyes: Present: PERRL, EOM intact - Neck Neck: Present: supple, normal ROM - Respiratory Respiratory effort: normal Respiratory: bilateral: diminished, rhonchi, negative: rales, wheezing - Cardiovascular Rhythm: regular Heart Sounds: Present: S1 & S2 - Extremities Extremities: no ischemia, No edema - Abdominal General gastrointestinal: soft, non-tender, non-distended, normal bowel sounds - Integumentary Integumentary: Present: clear, warm - Psychiatric Psychiatric: appropriate mood/affect, cooperative - Neurologic Neurologic: CNII-XII intact, moves all extremities Results - Labs CBC & Chem 7: 06/06/19 04:11 06/06/19 04:11 Labs: Laboratory Last Values WBC 2.5 K/mm3 (4.5-11.0) L 06/06/19 04:11 RBC 5.31 M/mm3 (3.65-5.03) H 06/06/19 04:11 Hgb 14.1 gm/dl (10.1-14.3) 06/06/19 04:11 Hct 43.7 % (30.3-42.9) H 06/06/19 04:11 MCV 82 fl (79-97) 06/06/19 04:11 MCH 27 pg (28-32) L 06/06/19 04:11 MCHC 32 % (30-34) 06/06/19 04:11 RDW 16.2 % (13.2-15.2) H 06/06/19 04:11 Plt Count 91 K/mm3 (140-440) L 06/06/19 04:11 [place] % (Auto) [place] 06/06/19 04:11 Add Manual Diff Complete 06/06/19 04:11 Total Counted 100 06/06/19 04:11 Seg Neuts % (Manual) 60.0 % (40.0-70.0) 06/06/19 04:11 Band Neutrophils % 0 % 06/06/19 04:11 Lymphocytes % (Manual) 22.0 % (13.4-35.0) 06/06/19 04:11 Reactive Lymphs % (Man) 0 % 06/06/19 04:11 Monocytes % (Manual) 17.0 % (0.0-7.3) H 06/06/19 04:11 Eosinophils % (Manual) 1.0 % (0.0-4.3) 06/06/19 04:11 Basophils % (Manual) 0 % (0.0-1.8) 06/06/19 04:11 Metamyelocytes % 0 % 06/06/19 04:11 Myelocytes % 0 % 06/06/19 04:11 Promyelocytes % 0 % 06/06/19 04:11 Blast Cells % 0 % 06/06/19 04:11 Nucleated RBC % Not Reportable 06/06/19 04:11 Seg Neutrophils # Man 1.5 K/mm3 (1.8-7.7) L 06/06/19 04:11 Band Neutrophils # 0.0 K/mm3 06/06/19 04:11 Lymphocytes # (Manual) 0.6 K/mm3 (1.2-5.4) L 06/06/19 04:11 Abs React Lymphs (Man) 0.0 K/mm3 06/06/19 04:11 Monocytes # (Manual) 0.4 K/mm3 (0.0-0.8) 06/06/19 04:11 Eosinophils # (Manual) 0.0 K/mm3 (0.0-0.4) 06/06/19 04:11 Basophils # (Manual) 0.0 K/mm3 (0.0-0.1) 06/06/19 04:11 Metamyelocytes # 0.0 K/mm3 06/06/19 04:11 Myelocytes # 0.0 K/mm3 06/06/19 04:11 Promyelocytes # 0.0 K/mm3 06/06/19 04:11 Blast Cells # 0.0 K/mm3 06/06/19 04:11 WBC Morphology Not Reportable 06/06/19 04:11 Hypersegmented Neuts Not Reportable 06/06/19 04:11 Hyposegmented Neuts Not Reportable 06/06/19 04:11 Hypogranular Neuts Not Reportable 06/06/19 04:11 Smudge Cells Not Reportable 06/06/19 04:11 Toxic Granulation Not Reportable 06/06/19 04:11 Toxic Vacuolation Not Reportable 06/06/19 04:11 Dohle Bodies Not Reportable 06/06/19 04:11 Pelger-Huet Anomaly Not Reportable 06/06/19 04:11 Liz Rods Not Reportable 06/06/19 04:11 Platelet Estimate Consistent w auto 06/06/19 04:11 Clumped Platelets Not Reportable 06/06/19 04:11 Plt Clumps, EDTA Not Reportable 06/06/19 04:11 Large Platelets Not Reportable 06/06/19 04:11 Giant Platelets Not Reportable 06/06/19 04:11 Platelet Satelliting Not Reportable 06/06/19 04:11 Plt Morphology Comment Not Reportable 06/06/19 04:11 RBC Morphology Not Reportable 06/06/19 04:11 Dimorphic RBCs Not Reportable 06/06/19 04:11 Polychromasia Not Reportable 06/06/19 04:11 Hypochromasia Not Reportable 06/06/19 04:11 Poikilocytosis Not Reportable 06/06/19 04:11 Anisocytosis 1+ 06/06/19 04:11 Microcytosis Not Reportable 06/06/19 04:11 Macrocytosis Not Reportable 06/06/19 04:11 Spherocytes Not Reportable 06/06/19 04:11 Pappenheimer Bodies Not Reportable 06/06/19 04:11 Sickle Cells Not Reportable 06/06/19 04:11 Target Cells Not Reportable 06/06/19 04:11 Tear Drop Cells Not Reportable 06/06/19 04:11 Ovalocytes Not Reportable 06/06/19 04:11 Helmet Cells Not Reportable 06/06/19 04:11 Mckeon-[place] Bodies Not Reportable 06/06/19 04:11 [place] Rings Not Reportable 06/06/19 04:11 [place] Cells Not Reportable 06/06/19 04:11 Bite Cells Not Reportable 06/06/19 04:11 Crenated Cell Not Reportable 06/06/19 04:11 Elliptocytes Not Reportable 06/06/19 04:11 Acanthocytes (Spur) Not Reportable 06/06/19 04:11 Rouleaux Not Reportable 06/06/19 04:11 Hemoglobin C Crystals Not Reportable 06/06/19 04:11 Schistocytes Not Reportable 06/06/19 04:11 Malaria parasites Not Reportable 06/06/19 04:11 Fran Bodies Not Reportable 06/06/19 04:11 Hem Pathologist Commnt No 06/06/19 04:11 Sodium 137 mmol/L (137-145) 06/06/19 04:11 Potassium 3.9 mmol/L (3.6-5.0) 06/06/19 04:11 Chloride 96.7 mmol/L (98-107) L 06/06/19 04:11 Carbon Dioxide 26 mmol/L (22-30) 06/06/19 04:11 Anion Gap 18 mmol/L 06/06/19 04:11 BUN 8 mg/dL (7-17) 06/06/19 04:11 Creatinine 0.8 mg/dL (0.7-1.2) 06/06/19 04:11 Estimated GFR > 60 ml/min 06/06/19 04:11 BUN/Creatinine Ratio 10 % 06/06/19 04:11 Glucose 67 mg/dL (65-100) 06/06/19 04:11 Calcium 8.7 mg/dL (8.4-10.2) 06/06/19 04:11 Total Bilirubin 0.20 mg/dL (0.1-1.2) 06/05/19 19:27 Direct Bilirubin < 0.2 mg/dL (0-0.2) 06/05/19 19:27 Indirect Bilirubin 0.0 mg/dL 06/05/19 19:27 AST 26 units/L (5-40) 06/05/19 19:27 ALT 13 units/L (7-56) 06/05/19 19:27 Alkaline Phosphatase 97 units/L (35-129) 06/05/19 19:27 Total Protein 7.1 g/dL (6.3-8.2) 06/05/19 19: Albumin 3.8 g/dL (3.9-5) L 06/05/19 19: Albumin/Globulin Ratio 1.2 % 06/05/19 19: Procalcitonin < 0.05 ng/mL (<0.15) 06/06/19 20:54 HCG, Qual Negative (Negative) 06/05/19 20:49 Urine Color Yellow (Yellow) 06/05/19 Unknown Urine Turbidity Clear (Clear) 06/05/19 Unknown Urine pH 6.0 (5.0-7.0) 06/05/19 Unknown Ur Specific [place] 1.020 (1.003-1.030) 06/05/19 Unknown Urine Protein <15 mg/dl mg/dL (Negative) 06/05/19 Unknown Urine Glucose (UA) Neg mg/dL (Negative) 06/05/19 Unknown Urine Ketones Neg mg/dL (Negative) 06/05/19 Unknown Urine Blood Neg (Negative) 06/05/19 Unknown Urine Nitrite Neg (Negative) 06/05/19 Unknown Urine Bilirubin Neg (Negative) 06/05/19 Unknown Urine Urobilinogen 2.0 mg/dL (<2.0) 06/05/19 Unknown Ur Leukocyte Esterase Sm (Negative) 06/05/19 Unknown Urine WBC (Auto) 8.0 /HPF (0.0-6.0) H 06/05/19 Unknown Urine RBC (Auto) 6.0 /HPF (0.0-6.0) 06/05/19 Unknown U Epithel Cells (Auto) 3.0 /HPF (0-13.0) 06/05/19 Unknown Urine Mucus 2+ /HPF 06/05/19 Unknown Urine HCG, Qual Negative (Negative) 06/05/19 Unknown Influenza A (Rapid) Negative (Negative) 06/05/19 Unknown Influenza B (Rapid) Negative (Negative) 06/05/19 Unknown Microbiology: Microbiology 06/06/19 20:56 Peripheral/Venous Blood Culture - Preliminary NO GROWTH AFTER 24 HOURS 06/06/19 20:56 Peripheral/Venous Blood Culture - Preliminary NO GROWTH AFTER 24 HOURS 06/05/19 Unknown Urine,Clean Catch Urine Culture - Final Vogt/IV: Voiding Method Toilet IV Catheter Type [Right INT / Saline Lock Antecubital] Active Medications - Current Medications Current Medications: Generic Name Dose Route Start Last Admin Trade Name Freq PRN Reason Stop Dose Admin Acetaminophen 650 mg 06/06/19 00:10 Tylenol PO Q4H PRN Pain MILD(1-3)/Fever >100.5/CHISHOLM Amlodipine Besylate 10 mg 06/07/19 10:00 06/07/19 10:15 Amlodipine PO 10 mg DAILY DARRIN Administration Enoxaparin Sodium 40 mg 06/06/19 10:00 06/07/19 10:14 Enoxaparin SUB-Q 40 mg QDAY DARRIN Administration Hydralazine HCl 5 mg 06/06/19 00:15 Apresoline IV Q6H PRN Hypertension Sodium Chloride 1,000 mls @ 125 mls/hr 06/06/19 01:00 06/08/19 04:04 Nacl 0.45% 1000 Ml IV 125 mls/hr DIRECT DARRIN Administration Levofloxacin 750 mg 06/08/19 10:00 Levaquin PO 06/10/19 12:00 DAILY [facility] Methocarbamol 500 mg 06/06/19 19:00 06/08/19 06:11 Robaxin PO 500 mg Q6H DARRIN Administration Metoclopramide HCl 10 mg 06/05/19 20:47 Reglan IV Q6H PRN Nausea And Vomiting Naproxen 500 mg 06/06/19 22:00 06/07/19 22:27 Naproxen PO 500 mg BID DARRIN Administration Nicotine 14 mg 06/08/19 10:00 Habitrol TD QDAY DARRIN Ondansetron HCl 4 mg 06/06/19 00:10 Zofran IV Q8H PRN Nausea And Vomiting Oxycodone/Acetaminophen 1 tab 06/06/19 00:10 06/07/19 20:20 Percocet 5/325 PO 1 tab Q4H PRN Administration Pain, Moderate (4-6) Sodium Chloride 10 ml 06/06/19 10:00 06/07/19 22:32 Sodium Chloride Flush Syringe 10 Ml IV Not Given BID DARRIN Sodium Chloride 10 ml 06/06/19 00:10 Sodium Chloride Flush Syringe 10 Ml IV PRN PRN LINE FLUSH
[2019-06-08] MEDS: amLODIPine 10 MG TAB PO SCH (11:04)
[2019-06-08] MEDS: levoFLOXacin 750 MG TAB PO SCH (11:04)
[2019-06-08] MEDS: ENOXAPARIN 40 MG/0.4 ML INJ SUB-Q SCH (11:05)
[2019-06-08] MEDS: NICOTINE 14 MG/24 HR PATCH TD SCH (11:05)
[2019-06-08] MEDS: NAPROXEN 500 MG TAB PO SCH (11:15)
--- NOTE | 2019-06-08 12:42 | Progress Note ---
Assessment and Plan Cultures: Blood culture 06/06/2019 pending Urine culture 06/05/2019 pending A/P: 39-year-old female past medical history hypertension, obesity admitted to the hospital with URI symptoms concerning for COVID-19. #COVID-19 rule out: Patient with consistent URI symptoms, though no acute pneumonia seen on chest x-ray. The patient is leukopenic, the patient's with poor immune system can sometimes have trouble creating the information required to be seen on chest x-ray. Survey already filled out, follow-up test results with [facility]. Test is pending, others from that day have returned positive so likely to be negative (though not confirmed) #URI: Procalcitonin normal. #Fevers: Possibly due to pneumonia as per above, denies any other symptoms including dysuria or symptoms concerning for urinary tract infection. #Leukopenia: Agree with sending test for HIV, already obtained and sent to lab. Recs: -Follow-up [facility] testing for COVID-19 -Continue levofloxacin for now to complete 5 days per possible community- acquired pneumonia -Follow-up urine cultures -follow up blood cultures -Follow-up HIV testing. Likely to take up to a week to return. If positive recommend she follow up at the [facility] as she is self-pay and we cannot organize the follow up labs for her. - Patient may be discharged when medically stable if testing swabs have been obtained. Upon discharge patient should self-quarantine at home until COVID testing returns. If negative, self-quarantine may end. If positive patient should self-quarantine for 14 days from symptom beginning. Public health and infection prevention will follow up with patients to notify them of their test results. Patients should return to hospital regardless if they have worsening fevers or respiratory status. Thank for the consult, will sign of for now. Please call us if her respiratory status worsens or if her HIV test returns positive. Francesca Garzon MD [facility] M: [phone] O: [phone] F: [phone] Subjective Date of service: 06/08/19 Interval history: Patient remains afebrile. [place] is low. Awaiting HIV test. Objective - Exam Narrative Exam: Physical Exam: Constitutional: Alert, cooperative. No acute distress. Obese Neck: Supple, no meningeal signs Oral: dentition fair, no thrush Cardiovascular: S1, S2 normal. Respiratory: Good air entry, clear to auscultation bilaterally GI: Soft, non-tender; bowel sounds normal. No peritoneal signs. Musculoskeletal: No pedal edema, no cyanosis. Skin: No rash or abscess Hem/Lymphatic: No palpable cervical or supraclavicular nodes. No lymphangitis Psych: Mood ok. Affect normal Neurological: Awake, alert, oriented. No gross abnormality - Constitutional Vitals: Vital Signs Temp Pulse Resp BP Pulse Ox 98.1 F 60 18 124/76 100 06/08/19 05:38 06/08/19 11:04 06/08/19 05:38 06/08/19 11:04 06/08/19 05:38 Temperature -Last 24 Hours Temperature 98.1 F Temperature 98.4 F Temperature 98.4 F - Labs CBC & Chem 7: 06/06/19 04:11 06/06/19 04:11
[2019-06-08] MEDS: oxyCODONE /ACETAMINOPHEN 5-325MG TAB PO PRN (21:37)
[2019-06-09] MEDS: SODIUM CHLORIDE 0.45% 1000 ML 1,000 ML IV SCH (00:39)
[2019-06-09] MEDS: ENOXAPARIN 40 MG/0.4 ML INJ SUB-Q SCH (10:06)
[2019-06-09] MEDS: NICOTINE 14 MG/24 HR PATCH TD SCH (10:07)
[2019-06-09] MEDS: levoFLOXacin 750 MG TAB PO SCH (10:07)
[2019-06-09] MEDS: amLODIPine 10 MG TAB PO SCH (10:11)
[2019-06-09] MEDS: oxyCODONE /ACETAMINOPHEN 5-325MG TAB PO PRN (12:08)
--- NOTE | 2019-06-09 14:17 | Discharge Summary ---
Providers - Providers Date of Admission: 06/05/19 23:57 Date of discharge: 06/09/19 Attending physician: CHAVEZ ANTOINE 06/06/19 00:10 Consult to Physician [CONS] Routine Comment: Consulting Provider: ALVIN CADET Physician Instructions: Reason For Exam: fever,leukopenia Primary care physician: ABSTRACT CLERK Hospitalization Condition: Fair Hospital course: 29-year-old woman with a history of hypertension comes emergency room for evaluation. Patient was initially seen in the emergency room on the for tooth pain, then on the for an episode of palpitation. She returns today complaining of a nonproductive cough, fever, chills, body aches, fatigue. [place] recent travel, sick contacts. She has a history of thrombocytopenia since 2018, no bleeding from mucosal surfaces. Patient will be admitted for upper respiratory symptoms, possible coronavirus rele out, Patient was admitted and placed on contact and droplet isolation, Covid-19 tests were done forms were sent to health department Empiric antibiotics given for UTI/possible pneumonia, symptoms gradually improved Covid-19 test is still pending. Today patient is comfortable no new complaints Vital signs stable, physical examination unremarkable Patient will follow with primary care physician, ID per schedule Will follow with health department for reports Self quarantine for 14 days, wear mask and thorough handwashing. If you have any questions contact PMD, or health department Discharge diagnosis and management; --Upper respiratory symptoms, rule out COVID Patient will be placed on droplet and contact precautions Empiric antibiotics, ID following --Febrile illness; low-grade fever To rule out Covid 19, forms filled out Test report still pending --Urinary tract infection On IV Levaquin, cultures negative to date Total 7 days of Levaquin --Hypertension IV hydralazine for control,, continue outpatient medications --Chronic leukopenia --Thrombocytopenia; due to chronic illness No evidence of bleeding, closely monitor Transfuse platelets as needed --DVT prophylax; Lovenox Cleared by ID Stable at discharge Disposition: DC- TO HOME OR SELFCARE Time spent for discharge: 32 min Core Measure Documentation - Palliative Care Palliative Care/ Comfort Measures: Not Applicable - Core Measures Any of the following diagnoses?: none Exam - Constitutional Vitals: Temp Pulse Resp BP Pulse Ox 98.5 F 55 L 18 105/61 100 06/09/19 06:15 06/09/19 10:11 06/09/19 06:15 06/09/19 10:11 06/09/19 06:15 General appearance: Present: no acute distress, well-nourished - EENT Eyes: Present: PERRL, EOM intact - Neck Neck: Present: supple, normal ROM - Respiratory Respiratory effort: normal Respiratory: bilateral: diminished, negative: rales, rhonchi, wheezing - Cardiovascular Rhythm: regular Heart Sounds: Present: S1 & S2 - Extremities Extremities: no ischemia, No edema - Abdominal General gastrointestinal: Present: soft, non-tender, non-distended, normal bowel sounds - Integumentary Integumentary: Present: clear, warm - Musculoskeletal Musculoskeletal: strength equal bilaterally, generalized weakness - Psychiatric Psychiatric: appropriate mood/affect, cooperative - Neurologic Neurologic: moves all extremities Plan Activity: advance as tolerated, other (Self quarantine for total 14 days) Diet: regular Additional Instructions: Instructions:Pt should self-quarantine at home until COVID testing returns. If negative, self-quarantine may end. If positive patient should self-quarantine for 14 days from symptom beginning. Public health and infection prevention will follow up with patients to notify them of their test results. Patients should return to hospital regardless if they have worsening fe vers or respiratory status. Patient advised to use mask, and thorough handwashing Follow up with: PRIMARY CARE, [Primary Care Provider] - 3-5 Days JITENDRA VANG MD [Staff Physician] - 14 Days Prescriptions: amLODIPine 10 mg PO DAILY #30 tablet levoFLOXacin [Levaquin TAB] 750 mg PO DAILY #3 tablet
[2019-06-09 15:12] VITALS: BP 123/90
== END 2019-06-09 15:50 | disposition home or self-care (01) | DRG 690 ==
LOC: ED 18:38 → 3A 23:57
PROVIDERS: ADMIT Internal Medicine; ATTEND Internal Medicine
DX: N39.0 Urinary tract infection, site not specified (principal); R65.10 Systemic inflammatory response syndrome (SIRS) of non-infectious origin without acute organ dysfunction; J06.9 Acute upper respiratory infection, unspecified; D72.819 Decreased white blood cell count, unspecified; Z20.828 Contact with and (suspected) exposure to other viral communicable diseases; D69.6 Thrombocytopenia, unspecified; Z88.8 Allergy status to other drugs, medicaments and biological substances; Z98.51 Tubal ligation status; Z82.49 Family history of ischemic heart disease and other diseases of the circulatory system
CPT/HCPCS: 36415; 71046; 80048; 80076; 81001; 81025; 84145; 84703; 85007; 85025; 85027; 86689; 87040; 87086; 87400; G0378; J1200; J1650; J1956; J2765; J7030

== ENCOUNTER 2020-03-19 13:27 | Emergency (ER) | payer SELFPAY ==
[2020-03-19 13:44] VITALS: BP 179/113
== END 2020-03-19 15:00 | disposition left against medical advice (07) ==
LOC: ED 13:27
DX: R05 Cough (principal); Z53.21 Procedure and treatment not carried out due to patient leaving prior to being seen by health care provider

== ENCOUNTER 2020-04-18 15:44 | Emergency (ER) | payer SELFPAY ==
[2020-04-18 17:09] VITALS: BP 165/109
--- NOTE | 2020-04-18 18:58 | Emergency Department Report ---
Abscess Boil HPI - HPI Chief Complaint: Extremity Problem,Nontraumatic Stated Complaint: LT HAND PAIN Time Seen by Provider: 04/18/20 17:17 Duration: 4 Days Location: Upper Extremity (left hand) Severity: Mild History: Yes Pain, Yes Purulent Drainage, Yes Previous History, No Fever, No Numbness, No Foreign Body, No Insect Bite HPI: This is a 30-year-old female with a history of high blood pressure on medication presents the ED complaining of left hand pain and scabbing x3 days. Patient states about 4 days ago she noticed a bump and redness to her left hand between her thumb and the first finger. Patient states that 2 days ago she had pus drainage come out and wound started so dry and scab. Patient states she still having pain to the hand. Patient states she was not bitten by any insect or animal. Patient states she is able to use that hand still. She denies fever/chills/nausea vomiting abdominal pain Home Medications: Previous Rx's Medication Instructions Recorded Last Taken Type Omeprazole 40 mg PO DAILY #30 capsule. 07/07/18 Unknown Rx Sucralfate [Carafate] 1 gm PO ACHS 7 Days #28 tablet 07/07/18 Unknown Rx methOCARBAMOL [Robaxin TAB] 500 mg PO Q6H #20 tablet 01/31/19 Unknown Rx traMADoL [Ultram 50 MG tab] 50 mg PO Q6HR PRN #7 tablet 06/03/19 Unknown Rx amLODIPine 10 mg PO DAILY #30 tablet 06/09/19 Unknown Rx levoFLOXacin [Levaquin TAB] 750 mg PO DAILY #3 tablet 06/09/19 Unknown Rx Clindamycin [Clindamycin CAP] 300 mg PO Q8H #21 cap 04/18/20 Unknown Rx Ibuprofen [Motrin 600 MG tab] 600 mg PO Q8H PRN #30 tablet 04/18/20 Unknown Rx Sulfamethoxazole/Trimethoprim 1 each PO BID #10 tablet 04/18/20 Unknown Rx [Bactrim DS TAB] Allergies/Adverse Reactions: Allergies Allergy/AdvReac Type Severity Reaction Status Date / Time ceftriaxone [From Rocephin] Allergy Unknown Verified 03/19/20 13:42 ED Review of Systems ROS: Stated complaint: LT HAND PAIN Other details as noted in HPI Comment: All other systems reviewed and negative ED Past Medical Hx - Past Medical History Previous Medical History?: Yes Hx Hypertension: Yes Additional medical history: vaginal ablation - Surgical History Past Surgical History?: Yes Additional Surgical History: tubal ligation, Endometrial Ablation - Social History Smoking Status: Current Every Day Smoker Substance Use Type: None - Medications Home Medications: Home Medications Medication Instructions Recorded Confirmed Last Taken Type Omeprazole 40 mg PO DAILY #30 capsule. 07/07/18 Unknown Rx Sucralfate [Carafate] 1 gm PO ACHS 7 Days #28 tablet 07/07/18 Unknown Rx methOCARBAMOL [Robaxin TAB] 500 mg PO Q6H #20 tablet 01/31/19 Unknown Rx traMADoL [Ultram 50 MG tab] 50 mg PO Q6HR PRN #7 tablet 06/03/19 Unknown Rx amLODIPine 10 mg PO DAILY #30 tablet 06/09/19 Unknown Rx levoFLOXacin [Levaquin TAB] 750 mg PO DAILY #3 tablet 06/09/19 Unknown Rx Clindamycin [Clindamycin CAP] 300 mg PO Q8H #21 cap 04/18/20 Unknown Rx Ibuprofen [Motrin 600 MG tab] 600 mg PO Q8H PRN #30 tablet 04/18/20 Unknown Rx Sulfamethoxazole/Trimethoprim 1 each PO BID #10 tablet 04/18/20 Unknown Rx [Bactrim DS TAB] ED Abscess Boil Physical Exam - Exam General: Vital signs noted. No distress. Alert and acting appropriately. Size: 1 cm Exam: Yes Tenderness, Yes Normal Neurologic Exam, Yes Normal Circulation, No Fluctuance, No Surrounding Cellulites/Erythema, No Lymphangitis, No Crepitation, No Heart Murmur ED Course Vital Signs 04/18/20 17:05 Temperature 98.6 F Pulse Rate 71 Respiratory 18 Rate Blood Pressure 165/109 O2 Sat by Pulse 99 Oximetry Critical care attestation.: If time is entered above; I have spent that time in minutes in the direct care of this critically ill patient, excluding procedure time. ED Medical Decision Making - Medical Decision Making 30-year-old female presents with drained small abscess of the left hand. Discussed with patient that wound will heal on its own. Discussed heat therapy 3 times a day. Discussed therapy antibiotic and completion. Patient is in no acute or respiratory distress. Discussed with patient to follow-up with primary care physician in 2 to 3 days. Patient understands all instructions and will follow-up. - Differential Diagnosis Cellulitis, abscess, abrasion, insect bite ED Disposition Clinical Impression: Cellulitis of left hand Disposition: DC-01 TO HOME OR SELFCARE Is pt being admited?: No Does the pt Need Aspirin: No Condition: Stable Instructions: Cellulitis, Adult Additional Instructions: Make sure to follow up with the primary care physician as discussed. Take all your medications as you've been prescribed. If you have any worsening symptoms or develop new symptoms please return to ED immediately. Prescriptions: Sulfamethoxazole/Trimethoprim [Bactrim DS TAB] 1 each PO BID #10 tablet Clindamycin [Clindamycin CAP] 300 mg PO Q8H #21 cap Ibuprofen [Motrin 600 MG tab] 600 mg PO Q8H PRN #30 tablet PRN Reason: Pain Referrals: PRIMARY CARE,MD [Primary Care Provider] - 3-5 Days [facility] [Outside] - 3-5 Days [facility] [Outside] - 3-5 Days Forms: Accompanied Note, Work/School Release Form(ED) Time of Disposition: 18:58
== END 2020-04-18 19:34 | disposition home or self-care (01) ==
LOC: ED 15:44
DX: L03.114 Cellulitis of left upper limb (principal); I10 Essential (primary) hypertension; F17.200 Nicotine dependence, unspecified, uncomplicated; Z98.51 Tubal ligation status; Z79.899 Other long term (current) drug therapy
CPT/HCPCS: 99282